=== PATIENT | female | born 1960 | race Caucasian/White ===

== ENCOUNTER → 2017-09-18 08:17 | Outpatient (CLI) | payer OTHER, SELFPAY ==
--- NOTE | 2017-09-18 08:36 | EKG12_ITS ---
Test Reason : PREOP Blood Pressure : / mmHG Vent. Rate : 060 BPM Atrial Rate : 060 BPM P-R Int : 200 ms QRS Dur : 086 ms QT Int : 420 ms P-R-T Axes : 022 -18 015 degrees QTc Int : 420 ms Normal sinus rhythm Septal infarct , age undetermined Inferior infarct , age undetermined Abnormal ECG Confirmed by NARESH MAHMOOD, MIKHAIL ([id number]), newspaper editor managing NIRALI LANTIGUA ([id number]) on 09/20/2017 3:03:41 PM Referred By: Jasen Huff Confirmed By:MIKHAIL INFANTE MD
[2017-09-18 09:17] LABS: Hematocrit 41.7 % (37-47); Hemoglobin 13.9 g/dl (12.0-15.0); Mean Corp Hgb Conc 33.3 g/gl (32-36); Mean Corpuscular Hgb 30.7 pg (27.0-32.0); Mean Corpuscular Volume 92.1 fL (81-99); Mean Platelet Vol. 12.1 fl (6.2-12.0); Platelet Count 235 K/mm3 (150-450); RBC Distribution Width CV 12.6 % (11.6-14.6); RBC Distribution Width SD 42.5 fl (35.1-43.9); Red Blood Count 4.53 M/mm3 (4.2-5.4); White Blood Count 5.7 K/mm3 (4.4-11.0)
[2017-09-18 09:26] LABS: Scan Indicated on CBC? Y/N NO
[2017-09-18 09:35] LABS: Anion Gap 10 (5-15); BUN 18 mg/dL (7-18); BUN/Creat Ratio 22.1 RATIO (10-20); Calcium,Total 8.7 mg/dL (8.5-10.1); Chloride 106 mmol/L (98-107); Creatinine, Serum 0.81 mg/dL (0.55-1.02); EST Glomerular Filtration Rate 77 mL/min (>60); Est Glom Filt Rate - Afr Amer 93 mL/min (>60); Glucose 85 mg/dL (74-106); Potassium 4.1 mmol/L (3.5-5.1); Sodium Level 142 mmol/L (136-145)
== END ==
PROVIDERS: Family Provider Family Medicine; PCP Family Medicine; Visit Provider Orthopaedic Surgery
DX: Z01.810 Encounter for preprocedural cardiovascular examination (principal); Z01.818 Encounter for other preprocedural examination
CPT/HCPCS: 36415; 80048; 85027; 93005

== ENCOUNTER → 2018-01-24 08:58 | Outpatient (CLI) | payer OTHER, SELFPAY | PROVIDERS: Family Provider Family Medicine; PCP Family Medicine; Visit Provider Orthopaedic Surgery | DX: M79.89 Other specified soft tissue disorders (principal) | CPT/HCPCS: 93971 ==

== ENCOUNTER → 2018-06-11 11:16 | Outpatient (CLI) | payer OTHER, SELFPAY ==
[2018-06-10 15:10] VITALS: BMI 34.9
--- NOTE | 2018-06-11 11:33 | STEWCON_ITS ---
Reason For Study: ABN EKG, PREOP Stress Results Protocol: Dobutamine Protocol Maximum Predicted HR: 161 bpm Target HR: 137 bpm % Maximum Predicted HR: 84 % DurationHeart Rate Stage (mm:ss) (bpm) BP Dose Comment BASELINE 76 135/77 0.2CC DEFINITY STAGE 1 3:22 101 137/6210.000.1 CC DEFINITY STAGE 2 3:10 130 111/8720.000.2 CC DEFINITY STAGE 3 1:36 136 / 30.00 RECOVERY 90 131/70 0.1 CC DEFINTIY Stress Duration: 8:08 mm:ss Maximum Stress HR: 136 bpm Baseline Echocardiogram Findings The estimated ejection fraction is 65 %. Stress Echo Wall motion Data Resting WM Intermediate WM Stress WM Resting Wall Motion Wall Motion Stress No regional wall motion No regional wall motion abnormalities noted. abnormalities noted. EKG Data The baseline ECG displays normal sinus rhythm. The patient was titrated from 10 mcg to a maximun of 30 mcg of dobutamine during the stress. The maximum heart rate attained was 139 beats per minute. This was 86% of maximum predicted heart rate. During dobutamine infusion, there were no ST or T wave changes noted to suggest ischemia. No clinical angina was noted. Interpretation Summary The estimated ejection fraction is 65 %. Normal, adequate, dobutamine echocardiogram. Negative for ischemia by EKG and echocardiographic criteria. No anginal symptoms noted. Rare PVCs noted. Appropriate blood pressure response to dobutamine. Test terminated due to the attainment of target heart rate. Final LVEF is 75%. Decreased sensitivity due to poor echo windows requiring Definity agent. No complications. The study was technically difficult. Contrast injection was performed. Ordering Physician: Benjamin Hope Referring Physician: Benjamin Hope Performed By: Janell Jason, WILLIAM, RVT
[2018-06-11 13:17] LABS: AST(SGOT) 22 U/L (15-37); Alanine Aminotransfer ALT/SGPT 34 U/L (13-56); Albumin, Serum 3.9 g/dL (3.2-5.0); Alkaline Phosphatase 97 U/L (45-117); Bilirubin, Direct 0.11 mg/dL (0.00-0.30); Cholesterol 262 mg/dL (200); Globulin 3.7 g/dL (2.2-4.2); High Density Lipoprotein 53 mg/dL; Protein, Total 7.6 g/dL (6.4-8.2); Triglycerides 167 mg/dL; Very Low Density Lipoprotein 33 mg/dL (5-40)
--- OUTSIDE RECORDS SUMMARY | 2018-08-13 09:02 | XMS RPT_ITS ---
:1960 Author Organization [place] Support Name Relationship Address Phone LIN ARTIS Unavailable [address] + [place] [address] WOOCISCH Unavailable [address] + [place] [address] LIN ARTIS Unavailable [address] + [place] [address] WOOCISCH Unavailable [address] + [place] [address] ROB ARTISALD Unavailable [address] + [place] [address] WOOCISCH Unavailable [address] + [place] [address] ROB ARTISALD Unavailable [address] + [place] [address] WOOCISCH Unavailable [address] + [place] [address] ROB ARTISALD Unavailable [address] + [place] [address] WOOCISCH Unavailable [address] + [place] [address] ROB ARTISALD Unavailable [address] + [place] [address] WOOCISCH Unavailable [address] + [place] [address] CHANDRA LIN Unavailable [address] [phone] [place] [address] WOOCISCH Unavailable [address] + [place] [address] CHANDRA LIN Unavailable [address] [phone] [place] [address] WOOCISCH Unavailable [address] + [place] [address] Care Team Providers Name Role Phone CONY CARBALLO () Attending Unavailable LA [place] Referring Unavailable LOULOU SNYDER (DOUBLE SPINDLE SHAPER OPERATOR) Attending Unavailable CONY CARBALLO) Attending Unavailable CONY CARBALLO) Referring Unavailable CONY CARBALLO () Referring Unavailable LOS MCKEON MD Attending Unavailable KAIT SALINAS, [facility] Primary Care Unavailable LOS MCKEON MD Attending Unavailable [facility] Primary [facility] Unavailable LOS MCKEON MD Attending Unavailable KAIT SALINAS, [facility] Primary Care Unavailable Benjamin Hope Attending Unavailable Jame Carballo Referring Unavailable Benjamin Hope Attending Unavailable Benjamin Hope Referring Unavailable Bursley, Jame Primary Care Unavailable Benjamin Hope Attending Unavailable Benjamin Hope Referring Unavailable Bursley, Jame Primary Care Unavailable Benjamin Hope Attending Unavailable Benjamin Hope Referring Unavailable Bursley, Jame Primary Care Unavailable Benjamin Hope Consulting Unavailable Jasen Huff Attending Unavailable Jasen Huff Referring Unavailable Bursley, Jame Primary Care Unavailable Juan Hay Attending Unavailable Eileen Shane Attending Unavailable Bursley, Jame Referring Unavailable Bursley, Jame Primary Care Unavailable Eileen Shane Attending Unavailable Eileen Shane Referring Unavailable Bursley, Jame Primary Care Unavailable PROBLEMS PROBLEMS DATE TYPE CONDITION / CODE ATTENDING STATUS SOURCE 06/16/2018 Unknown Z01.810 - Encounter Benjamin Hope for preprocedural [facility] examination / Repository Z01.810(ICD-10) 06/16/2018 Unknown R94.31 - Abnormal Benjamin Hope Active [facility] electrocardiogram Community [ECG] [EKG] / Hospital R94.31(ICD-10) Repository 06/10/2018 Unknown K21.0 - Benjamin Hope Active [facility] reflux disease with Hospital esophagitis / Repository K21.0(ICD-10) 06/05/2018 Active Other alf NA Active [facility] (current) drug therapy [facility] / Z79.899(ICD-10) [facility] Repository 06/05/2018 Active Abnormal NA Active [facility] electrocardiogram [facility] (ECG) (EKG) / [facility] R94.31(ICD-10) Repository 06/05/2018 Active Unilateral primary NA Active [facility] osteoarthritis, right Clinic Main knee / M17.11(ICD-10) [facility] Repository 06/05/2018 Active Encounter for other NA Active [facility] preprocedural [facility] examination / [facility] Z01.818(ICD-10) Repository 01/23/2018 Unknown M79.89 - Other [place], Active [facility] specified soft tissue Eileen [facility] disorders / Hospital M79.89(ICD-10) Repository 08/07/2017 Active Unknown / UNK(Unknown) LOULOU SNYDER Active [facility] (DOUBLE SPINDLE SHAPER OPERATOR) Clinic Main [facility] Repository 08/07/2017 Active Encounter for NA [facility] screening mammogram [facility] for malignant neoplasm [facility] of breast / Repository Z12.31(ICD-10) PROCEDURES PROCEDURES No Procedure Records FoundRESULTS RESULTS ECHO, COMPLETE W/ Observed: 06/16/2018 Status: F Source: [place] CONTRAST 3:26 PM [facility] REPOSITORY [facility] Cardiovascular Services [address] [place] [address] Echo Complete W/ Contrast 06/16/18 1352 MR#: [id number] Acct: [id number] Name: CARMENZA ARTIS Rep #: [id number] : 1960 57 From: Benjamin Hope MD Attending Dr: Benjamin Hope MD Status: REG CLI Ordering Dr: Benjamin Hope MD Date: 06/16/18 Location: [facility] Sex: F C Admitted: Reason For Study: Abn EKG, Preop Procedure This was a 2D Doppler, Color Flow transthoracic echocardiogram. Contrast injection was performed. Exam performed in department. Left Ventricle Normal size and thickness. The estimated ejection fraction is 65 %. Stage 1 diastolic dysfunction. No regional wall motion abnormalities noted. Right Ventricle Normal size and thickness. Normal systolic function. Atria Normal left atrium. Normal right atrium. Normal atrial septum. Mitral Valve The mitral valve is structurally normal. No prolapse or stenosis seen. Tricuspid Valve Normal tricuspid valve. Trivial tricuspid valve insufficiency. Right ventricular systolic pressure estimated to be 18 mmHg. Aortic Valve Normal aortic valve. Trisinus/trileaflet aortic valve. Pulmonic Valve Normal pulmonic valve. Trivial pulmonic valve insufficiency. Great Vessels Normal aortic root. Normal arch. Normal inferior vena cava. Inferior vena cava collapse with sniff. Pericardium/Pleural No pericardial effusion. Medication Definity0.4ml given slow IV push to enhance endocardial definition. MMode/2D Measurements AND Calculations LVIDd: 4.1 cm IVSd: 1.1 cm Ao root diam: 2.9 cm LVIDs: 2.4 cm LVPWd: 0.98 cm RVDd: 2.8 cm FS: 41.5 % LAV(MOD-bp): 33.2 ml LVAd ap4: 25.8 cm2 SV(MOD-sp4): 51.5 ml LAV(MOD-bp) Indexed: 17.4 ml/m2 EDV(MOD-sp4): 74.0 ml LAV(MOD-sp2): 28.5 ml EDV(sp4-el): 74.9 ml LAV(MOD-sp4): 32.2 ml LVAs ap4: 13.1 cm2 ESV(MOD-sp4): 22.6 ml ESV(sp4-el): 21.6 ml EF(MOD-sp4): 69.5 % EF(sp4-el): 71.2 % SV(sp4-el): 53.3 ml LA A4 area: 13.9 cm2 LA dimension(2D): 3.9 cm RA A4 area: 13.6 cm2 Doppler Measurements AND Calculations MV E max azam: 53.2 cm/sec Lat Peak E' Azam: 9.9 cm/sec Med Peak E' Azam: 6.8 cm/sec MV A max azam: 73.7 cm/sec E/E' lat: 5.4 E/E' med: 7.9 MV E/A: 0.72 Ao V2 max: 122.9 cm/sec LV V1 max: 89.5 cm/sec PA V2 max: 116.5 cm/sec Ao max P.0 mmHg LV V1 max P.2 mmHg Ao V2 mean: 86.2 cm/sec Ao mean P.3 mmHg Ao V2 VTI: 19.5 cm TR max azam: 184.6 cm/sec TR max P.6 mmHg Interpretation Summary The estimated ejection fraction is 65 %. Stage 1 diastolic dysfunction. Trivial tricuspid valve insufficiency. Right ventricular systolic pressure estimated to be 18 mmHg. The study was technically difficult. There is no comparison study available. Contrast injection was performed. Ordering Physician: Benjamin Hope Referring Physician: Cony Carballo Performed By: Janell Jason, RDCS, RVT 06/16/18 1525 Date Benjamin Hope MD CC: Jame Carballo MD; Benjamin Hope MD Date Dictated: 06/16/18 1352 Date Transcribed: 06/16/18 1525 Cardiovascular Or Nurse: Signed STRESS TEST ECHO W/ Observed: 06/11/2018 Status: F Source: [place] CONTRAST 1:42 PM [facility] REPOSITORY [facility] Cardiovascular Services [address] [place] [address] Stress Test Echo W/Contrast MR#: [id number] Acct: [id number] Name: CARMENZA ARTIS Rep #: [id number] : 1960 57 From: Benjamin Hope MD Primary Care: Jame Carballo MD Status: REG CLI Ordering Dr: Benjamin Hope MD Sex: F C Reason For Study: ABN EKG, PREOP Stress Results Protocol: Dobutamine Protocol Maximum Predicted HR: 161 bpm Target HR: 137 bpm % Maximum Predicted HR: 84 % DurationHeart Rate Stage (mm:ss) (bpm) BP Dose Comment BASELINE 76 135/77 0.2CC DEFINITY STAGE 1 3:22 101 137/6210.000.1 CC DEFINITY STAGE 2 3:10 130 111/8720.000.2 CC DEFINITY STAGE 3 1:36 136 / 30.00 RECOVERY 90 131/70 0.1 CC DEFINTIY Stress Duration: 8:08 mm:ss Maximum Stress HR: 136 bpm Baseline Echocardiogram Findings The estimated ejection fraction is 65 %. Stress Echo Wall motion Data Resting WM Intermediate WM Stress WM Resting Wall Motion Wall Motion Stress No regional wall motion No regional wall motion abnormalities noted. abnormalities noted. EKG Data The baseline ECG displays normal sinus rhythm. The patient was titrated from 10 mcg to a maximun of 30 mcg of dobutamine during the stress. The maximum heart rate attained was 139 beats per minute. This was 86% of maximum predicted heart rate. During dobutamine infusion, there were no ST or T wave changes noted to suggest ischemia. No clinical angina was noted. Interpretation Summary The estimated ejection fraction is 65 %. Normal, adequate, dobutamine echocardiogram. Negative for ischemia by EKG and echocardiographic criteria. No anginal symptoms noted. Rare PVCs noted. Appropriate blood pressure response to dobutamine. Test terminated due to the attainment of target heart rate. Final LVEF is 75%. Decreased sensitivity due to poor echo windows requiring Definity agent. No complications. The study was technically difficult. Contrast injection was performed. Ordering Physician: Benjamin Hope Referring Physician: Benjamin Hope Performed By: Janell Jason, WILLIAM, RVT 06/11/18 1341 Date Benjamin Hope MD CC: Jame Carballo MD; Benjamin Hope MD Date Dictated: 06/11/18 1210 Date Transcribed: 06/11/18 1342 Cardiovascular Or Nurse: Signed LIVER PROFILE Collected: 06/11/2018 Status: F Source: [place] 11:20 AM [facility] REPOSITORY TYPE CODE TESTS RESULT OUT OF RANGE REFERENCE UNITS LAB L501.1500 6.4-8.2 g/dL Normal T PROT 7.6 LAB L501.1800 3.2-5.0 g/dL Normal ALB 3.9 LAB L501.1950 2.2-4.2 g/dL Normal GLOB 3.7 LAB L501.4100 15-37 U/L Normal AST 22 LAB L501.4305 45-117 U/L Normal ALK P 97 LAB L501.4405 13-56 U/L Normal ALT 34 LAB L501.4600 0.20-1.00 mg/dL Normal T BILI 0.50 LAB L501.4700 0.00-0.30 mg/dL Normal D BILI 0.11 Performed By: #### L500.3400, L500.4100 #### [facility] [address] [place], [address] LIPID PROFILE Collected: 06/11/2018 Status: F Source: [place] 11:20 AM [facility] REPOSITORY TYPE CODE TESTS RESULT OUT OF RANGE REFERENCE UNITS LAB L501.4900 200 mg/dL High CHOL 262 Result Comment: <200 mg/dL Desirable 200-240 mg/dL Borderline >240 mg/dL High Risk LAB L501.5000 mg/dL Normal TRIG 167 Result Comment: The drugs N-Acetylcysteine and Metamizole may falsely depress this assay. Serum Triglycerides Reference Interval Normal <150 mg/dL Borderline high 150 - 199 mg/dL High 200 - 499 mg/dL Very High > or = 500 mg/dL LAB L501.6400 mg/dL Normal HDL 53 Result Comment: The drugs N-Acetylcysteine and Metamizole may falsely depress this assay. Reference Range HDL <40 mg/dL Low HDL Cholesterol HDL >or= 60 mg/dL High HDL Cholesterol LAB L501.6500 0-130 mg/dL High LDL 176 LAB L501.6600 5-40 mg/dL Normal VLDL 33 Performed By: #### L500.3400, L500.4100 #### [facility] [address] [place], [address] CARDIOLOGY VISIT Observed: 06/10/2018 Status: F Source: [place] REPORT 3:33 PM [facility] REPOSITORY [facility] [address] [place] [address] OFFICE VISIT Date of Service: 06/10/18 MR#: [id number] Acct: [id number] Name: CARMENZA ARTIS Rep #: [id number] : 1960 Provider: Benjamin Hope MD Age/Sex: 57/F Location: [facility] Status: Signed [facility] Chief Complaint: Pre operative risk stratification Details: CARMENZA ARTIS, is a 57 F, nondiabetic, nonhypertensive, with hypercholesterolemia on no medications, history of severe GERD for the past 2-3 years on PPI therapy, lifelong non-smoker, and no known coronary artery disease who presents to the office today for evaluation of preoperative stratification and abnormal EKG. The patient has recently been under a significant amount of psychosocial stress over the last several months, dealing with both her and her father with severe illnesses. Approximately 2-3 months ago while sitting on the couch the patient developed severe midsternal chest heaviness, which appeared to radiate between her shoulder blades and under her left armpit. She had no associated shortness of breath but did have some nausea but no vomiting. She reports that this is dissimilar from her previous GERD symptoms, and has not recurred since that time. The patient is being evaluated for [id number] right knee surgery coming up soon, and a preoperative EKG was performed on 06/03/18. This demonstrated normal sinus rhythm, possible old inferior wall myocardial infarction, and poor R wave progression across the precordium possibly suggesting old anterior wall myocardial infarction. This is consistent with the previous EKG from 01/30/2012. In our office her blood pressure is 90/50, pulse is 96 and regular. Her physical exam demonstrates clear lungs bilaterally, regular rate and rhythm, normal S1/S2, no murmurs are detected. She has no edema. Lipids are pending. EKG is as above. Intake Vital Signs06/10/18 Height 5 ft 3 in 06/10/18 Weight: 197 lb 06/10/18 Body Mass Index (BMI) 34.9 06/10/18 Blood Pressure 90/50 L Intake Visit Reasons: CLEAR. FOR KNEE SURGERY (LINDA), ABN EKG Radar Operator Required: No Is patient in pain?: No Allergies No Known Allergies Allergy (Verified 06/10/18 15:13) Medications ibuprofen 200 mg tablet 200 mg PO TID-QID PRN 01/23/18 [History Confirmed 06/10/18] lansoprazole 30 mg capsule,delayed release 30 mg PO BID 06/10/18 [History Confirmed 06/10/18] PFSH Medical History Abnormal EKG (Chronic) Pre-operative cardiovascular examination (Acute) Arthritis of right knee (Chronic) Social History Smoking Status: Never smoker ROS Const Const: Positive for other (Here for pre-op eval for abnormal ekg. 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 ); negative for fatigue, weakness, body ache, fever(s), headache(s), chills, frequent falls, night sweats, daytime sleepiness, difficulty sleeping, excessive sweating, weight gain, weight loss, increased appetite, poor appetite or anorexia Eyes Eyes: Negative for blind spots, loss of peripheral vision, transient loss of vision, blurry vision, change in vision, double vision, floaters, tunnel vision or other ENT ENT: Negative for dizziness, hearing loss, tinnitus, Nosebleed/epistaxis, balance problems, post nasal drip, lip swelling, tongue swelling, bleeding gums, hoarseness, neck pain, dry mouth, other or headache(s) Cardio Chest Pain: No Palpitations: No Edema: None Muscle aches with walking: None Resp Respiratory: Positive for other (Has been inactive due to knee so does get ZULETA); negative for SOB with activity, SOB at rest, SOB orthopnea\SOB lying down, Cough, Coughing up blood/hemoptysis, chest congestion, pain on inspiration, snoring, stridor, wheezing, crackles or paroxysmal nocturnal dyspnea GI GI: Negative nausea, vomiting, heartburn, constipation, belching, bloating, cramping, vomiting blood/hematemesis, bright, red blood in stools, black,tarry stools, loose stools, Difficulty Swallowing or other : Negative for hematuria, frequent nighttime urination/ nocturia, erectile dysfunction or abnormal vaginal bleeding Musc Musc: Negative for balance problems, muscle aches/ myalgia, muscle weakness or joint pain Skin Skin: Negative redness, non-healing lesions, rash, unusual bruising, skin ulcer, wounds, jaundice or other Neuro Neuro: Negative for blurry vision, double vision, dizziness, lightheadedness, near syncope, syncope, orthostatic symptoms, confusion, memory loss, restless legs, vertigo, seizures, lack of coordination, other, weakness, headache(s) or frequent falls Gerard Hematologic/Lymphatic: Negative for easy bleeding, easy bruising, enlarged lymph nodes or other Endo Endo: Negative for cold intolerance, heat intolerance, flushing, increased thirst/drinking, increased hunger, hair loss, hair growth, other, fatigue or excessive sweating Psych Psych: Negative for anxiety, depression, thoughts of harming anyone, thoughts of harming yourself, visual hallucinations, panic attacks or audible hallucinations Allergy Allergy/Immunology: Negative for lip swelling, Negative for tongue swelling, Negative for rash, Negative for throat swelling, Negative for hives Cardiology Exam Const Appearance: cooperative, healthy appearing and no acute distress Nutritional Appearance: well nourished Orientation: alert, oriented x3 and oriented to person Head Head: normal to inspection, atraumatic and normocephalic Nose: external nose normal Face and Sinus: face symmetric Mouth: oral mucosae normal Eyes General: appearance normal, both eyes and all related structures Eyelids: eyelids normal Conjunctivae: conjunctivae normal Pupils: PERRL and normal by confrontation EOM: EOM intact bilaterally Neck Neck: normal visual inspection and full ROM Carotids: normal carotid upstroke Chest Chest inspection: normal inspection of the chest Auscultation: Bilateral: Clear to Auscultation Cardio Palpation: normal PMI Rate: regular rate Rhythm: regular rhythm Heart sounds: S1 normal and S2 normal GI GI: normal to inspection, no hepatosplenomegaly and bowel sounds present Neuro General: alert, oriented x3, awake, CN's II-XI intact bilaterally and moves all extremities Skin Skin: no rashes or lesions noted Extremities Pulses: Normal: Right Femoral Pulse, Left Femoral Pulse, Right Dorsalis Pedis Pulse, Left Dorsalis Pedis Pulse, Right Posterior Tibial Pulse, Left Posterior Tibial Pulse, Right Radial Pulse, Left Radial Pulse Lower Extremity Edema: None: Bilateral Psych Psychological: normal affect Assessment AND Plan 1. Pre-operative cardiovascular examination Z01.810 Plan 1. Preoperative for stratification: The patient presents with an abnormal EKG which is been present since 2012 and a concerning event for substernal chest pressure occurring several months ago while she was under a significant amount of psychosocial stress. Patient requires a right knee replacement and is set several risk factors for coronary disease including her age, abnormal EKG, hypercholesterolemia, and chest pain symptoms. In order to better evaluate her cardiac risk stratification I recommended that she undergo a 2D echo with Doppler to establish her LV function, pulmonary pressures and valvular status. In addition I recommend that she undergo a non-walking dobutamine echocardiogram to determine whether she has any ischemic areas. If either 1 of these are grossly abnormal, she will require a diagnostic coronary angiogram prior to her knee surgery. If however they are negative, she will be deemed at low risk for noncardiac surgery. In addition I recommend that she undergo a fasting lipid profile and treat her LDL cholesterol of greater than 130. Finally, recommend that she be referred to Dr. Rea for an EGD and possible lower esophageal biopsy given her years of severe GERD. Patient still has her gallbladder, and may be a contributing factor in her symptoms. I recommended the patient avoid aggressive use of ibuprofen as this may be exacerbating her reflux symptoms. 2. Return office in 6 months. This note was generated using a voice recognition system and there may be incorrect words, spelling or punctuation that were not noted when reviewing the office note prior to saving. Orders Orders: Plan Detail Other Orders Orders: Referrals: Follow Up +6M (Jayy) Coding Level of Care Code Off vis,new,level 4 Diagnoses Pre-operative cardiovascular examination Z01.810 Coding Level of Care Code Off vis,new,level 4 Diagnoses Pre-operative cardiovascular examination Z01.810 Supplemental Info Supplemental Information Diagnostics Electrocardiogram 09/18/17 Venous Doppler Study 01/24/18 06/10/18 1533 <Electronically signed by Benjamin Hope MD> Date Benjamin Hope MD Cosigner Signature: Date (if applicable) CC: Jame Carballo MD LIPID PANEL, BASIC Collected: 06/05/2018 Status: F Source: [place] 9:10 AM [facility] REPOSITORY TYPE CODE TESTS RESULT OUT OF REFERENCE UNITS RANGE LAB CHOL <200 mg/dL Cholesterol High 237 Result Comment: <200 mg/dL, Desirable 200-239 mg/dL, Borderline high >239 mg/dL, High LAB TRIGLY <150 mg/dL Triglyceride High 188 Result Comment: <150 mg/dL, Normal 150-199 mg/dL, Borderline high 200-499 mg/dL, High >499 mg/dL, Very high LAB HDL >39 mg/dL HDL-Cholesterol 51 Result Comment: 40-59 mg/dL, Acceptable >59 mg/dL, High: Negative risk factor for coronary heart disease <40 mg/dL, Low: Positive risk factor for coronary heart disease LAB LDL <100 mg/dL LDL-Cholesterol High 148 Result Comment: <100 mg/dL, Optimal 100-129 mg/dL, Near optimal/above optimal 130-159 mg/dL, Borderline high 160-189 mg/dL, High >189 mg/dL, Very high Secondary prevention optimal LDL Cholesterol levels are recommended to be < 70 mg/dL LAB NONHDL <130 mg/dL Non HDL High Cholesterol 186 Result Comment: <130 mg/dL, Optimal 130-159 mg/dL, Near optimal/above optimal 160-189 mg/dL, Borderline high 190-219 mg/dL, High >219 mg/dL, Very high Secondary prevention optimal non HDL Cholesterol levels are recommended to be < 100 mg/dL LAB FT hrs Fasting Time 12 LAB VLDL <30 mg/dL High VLDL Cholesterol 38 LAB TCHDL <5.10 TC:HDL Ratio 4.65 LAB LDLHDL <2.54 High LDL:HDL Ratio 2.90 Result Comment: Reference: 1. National Cholesterol Education Program ATP III Guideline At-A-Glance Quick Desk Reference: National Heart, Lung, and Blood [place]. National Institutes of Health. 2001: NIH Publication No. 01-3305. 2. An International Atherosclerosis Society position paper: global recommendations for the management of dyslipidemia: executive summary, Atherosclerosis. 2014: 232(2):410-413. Performed By: #### LIPB #### [facility] [employer] [address] [address] MAGNESIUM Collected: 06/05/2018 Status: F Source: [place] 9:10 AM [facility] REPOSITORY TYPE CODE TESTS RESULT OUT OF REFERENCE UNITS RANGE LAB MG 1.7-2.3 mg/dL Magnesium 2.1 Performed By: #### MG1, TSH #### [facility] [address] [address] TSH Collected: 06/05/2018 Status: F Source: [place] 9:10 AM [facility] REPOSITORY TYPE CODE TESTS RESULT OUT OF RANGE REFERENCE UNITS LAB TSH 0.400-5.500 uU/mL TSH 1.370 Performed By: #### MG1, TSH #### [facility] [address] [place] [id number] XR CHEST 2V FRONTAL/LAT Observed: 06/05/2018 Status: F Source: [place] 9:01 AM [facility] REPOSITORY * * *Final Report* * * DATE OF EXAM: Jun 05 2018 9:01AM WOX [id number] - XR CHEST 2V FRONTAL/LAT / PROCEDURE REASON: multiple diagnoses * * * * Physician Interpretation * * * * EXAMINATION: CHEST RADIOGRAPH (2 VIEW FRONTAL and LATERAL) CLINICAL HISTORY: Primary osteoarthritis of right knee Preop examination MQ: XC2_5 Comparison: Comparison is made to prior study dated 18 August 2011 RESULT: Lines, tubes, and devices: None. Lungs and pleura: There is no focal consolidation or acute pleural process. There is no overt pulmonary edema. Cardiomediastinal silhouette: Normal cardiomediastinal silhouette. Other: The bony structures are intact IMPRESSION: Stable chest. No acute cardiopulmonary process. Cardiovascular Or Nurse: PSCB Transcribe Date/Time: Jun 05 2018 3:37P Dictated by : QI GONZALEZ MD This examination was interpreted and the report reviewed and electronically signed by: QI GONZALEZ MD on Jun 05 2018 3:40PM EST [id number] Observed: 06/05/2018 Status: COMPLETED Source: [place] 8:52 AM [facility] REPOSITORY HNO ID: [id number] Author: Monse Shannon (Rt) Pepe Tracy Service: (none) Author Type: Program Project Manager Type: Progress Notes Filed: 06/05/2018 9:01 AM Note Text: Radiology Service Progress Note PATIENT NAME: Carmenza Artis DATE OF SERVICE: June 05, 2018 TIME: 8:52 AM PATIENT IDENTITY VERIFICATION COMPLETED USING TWO (2) METHODS: Patient confirmed name verbally and Date of . PATIENT GENDER DATA: Female. status: : No status: NO. PATIENT RELEVANT IMPLANT DATA REVIEWED: Not Applicable RADIOLOGY DEPARTMENT: General X-ray: Exam(s) Completed: Chest X-Ray PERIPHERAL IV DATA: Not applicable SIGNED BY: RT Ute June 05, 2018 8:52 AM PROGRESS Observed: 06/05/2018 Status: COMPLETED Source: [place] 8:02 AM [facility] REPOSITORY O ID: [id number] Author: Cony Smith) Kait Service: (none) Author Type: Physician Type: Progress Notes Filed: 06/05/2018 8:31 AM Note Text: Chief Complaint Patient presents with: Pre-Op Exam HPI Carmenza Artis is a 57 year old female who presents here today for preoperative clearance. Patient is to undergo right unicompartmental Knee Replacement by Dr. Mckeon on 06/10 for primary osteoarthritis. Prior to today's office visit she had CMP and CBC with normal creatinine and hemoglobin. EKG obtained showing Sinus rhythm with probably inferior infarct with q wave in lead III. Patient admits to occasional chest pain and palpitations (see ROS). Has had difficulty coming out of anesthesia in the past. Discussed this already with anesthesiologist and are considering block for procedure. No other complications with anesthesia in the past. Past medical history, appointments, medications, allergies reviewed. Previous Medical History PAST MEDICAL HISTORY Diagnosis Date - Arthritis - GERD (gastroesophageal reflux disease) - History of uterine fibroid - Hyperlipidemia - Obesity - Rheumatoid arthritis (HCC) Previous Surgical History PAST SURGICAL HISTORY Procedure Laterality Date - COLONOSCOP W/ OR W/O [facility] SPEC 09/22/2010 Colonoscopy - LIGATE FALLOPIAN TUBE - TOTAL ABDOM HYSTERECTOMY 01/2012 and LSO For fibroid uterus Family History FAMILY HISTORY Problem Relation Age of Onset - other (a fib) Mother - other (a fib) Father - Breast Cancer Maternal Aunt - Cancer Maternal Grandmother cervical - Alzheimer's Disease Paternal Grandfather Patient Allergies ALLERGIES No Known Allergies Current Medications No current outpatient prescriptions on file prior to visit. No current facility-administered medications on file prior to visit. 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 Left sided chest pain with radiation into left arm. Denies sweating, nausea, SOB, lightheadedness, exacerbation with exertion, improvement with rest. Gets occasional palpitations with this as well. GI: No nausea, vomiting, or diarrhea SKIN: Negative for lesions, rash, and itching EXAM: BP 124/74 Pulse 87 Temp 36.2 ?C (97.1 ?F) (Temporal Artery) Resp 12 Ht 158 cm (5' 2.21) Wt 88 kg (194 lb) LMP 01/14/2012 SpO2 97% BMI 35.25 kg/m? General Appearance: Well appearing, alert, in no acute distress, well-hydrated, well nourished.. Skin: Skin color, texture, turgor normal, no suspicious rashes or lesions. Lungs: lungs clear to auscultation. No wheezing, rhonchi, rales. Heart: RRR without murmur, gallop, or rubs. No ectopy. Abdomen: Normal abdominal exam, Abdomen soft, non-tender. Bowel sounds normal. No masses, organomegaly. Extremities: No deformities, edema, skin discoloration, clubbing or cyanosis. Good capillary refill. . Health Maintenance List HEPATITIS C SCREENING due on 2002 INFLUENZA(1) due on 01/18/2018 MAMMOGRAM due on 08/07/2018 DIABETES SCREEN due on 05/15/2019 COLORECTAL CANCER SCREENING,SEE MODIFIER due on 09/22/2020 LIPID SCREEN due on 05/15/2021 DTAP,TDAP,TD(3 - Td) due on 06/21/2026 ASSESSMENT/PLAN: 1. Primary osteoarthritis of right knee - ICD9: 715.16, ICD10: M17.11 (primary diagnosis) Would recommend delay of surgery at this time due to abnormal EKG and intermittent chest pain. Will obtain stress test and refer to cardiology for clearance. Will notify Dr. Mckeon's office. - COMP METABOLIC PANEL - CBC - ECG COMPLETE W INTERPRETATION - XR CHEST 2V FRONTAL/LAT 2. Preop examination - ICD9: V72.84, ICD10: Z01.818 See above. - COMP METABOLIC PANEL - CBC - ECG COMPLETE W INTERPRETATION - XR CHEST 2V FRONTAL/LAT - CONSULT TO CARDIOLOGY - MS CARDIAC PERF STRESS/PHARM 3. Abnormal EKG - ICD9: 794.31, ICD10: R94.31 See above - CONSULT TO CARDIOLOGY - MS CARDIAC PERF STRESS/PHARM - TSH BLD - MAGNESIUM BLD 4. Chest pain, unspecified type - ICD9: 786.50, ICD10: R07.9 Chest pain of unclear etiology, patient with significant risk factor(s) of Hyperlipidemia and obesity. - Stress testing- see orders - Referral to Cardiology Cony Carballo MD CNOV Observed: 06/05/2018 Status: COMPLETED Source: [place] 8:00 AM [facility] REPOSITORY Office Visit (FAMPWS) CARMENZA ARTIS ([id number]) 1960 F Date Time Provider Department 06/05/18 8:00 AM CONY CARBALLO) FAMPWS During your visit today, we recorded the following information about you: Temperature Pulse Respiration Blood pressure 97.1 degrees 87/minute 12/minute 124/74 Weight Height 88 kg 1.58 m Cony Carballo MD 06/05/2018 8:31 AM Signed Chief Complaint Patient presents with: Pre-Op Exam HPI Carmenzadinorah Artis is a 57 year old female who presents here today for preoperative clearance. Patient is to undergo right unicompartmental Knee Replacement by Dr. Mckeon on 06/10 for primary osteoarthritis. Prior to today's office visit she had CMP and CBC with normal creatinine and hemoglobin. EKG obtained showing Sinus rhythm with probably inferior infarct with q wave in lead III. Patient admits to occasional chest pain and palpitations (see ROS). Has had difficulty coming out of anesthesia in the past. Discussed this already with anesthesiologist and are considering block for procedure. No other complications with anesthesia in the past. Past medical history, appointments, medications, allergies reviewed. Previous Medical History PAST MEDICAL HISTORY Diagnosis Date - Arthritis - GERD (gastroesophageal reflux disease) - History of uterine fibroid - Hyperlipidemia - Obesity - Rheumatoid arthritis (HCC) Previous Surgical History PAST SURGICAL HISTORY Procedure Laterality Date - COLONOSCOP W/ OR W/O [facility] SPEC 09/22/2010 Colonoscopy - LIGATE FALLOPIAN TUBE - TOTAL ABDOM HYSTERECTOMY 01/2012 and LSO For fibroid uterus Family History FAMILY HISTORY Problem Relation Age of Onset - other (a fib) Mother - other (a fib) Father - Breast Cancer Maternal Aunt - Cancer Maternal Grandmother cervical - Alzheimer's Disease Paternal Grandfather Patient Allergies ALLERGIES No Known Allergies Current Medications No current outpatient prescriptions on file prior to visit. No current facility-administered medications on file prior to visit. 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 Left sided chest pain with radiation into left arm. Denies sweating, nausea, SOB, lightheadedness, exacerbation with exertion, improvement with rest. Gets occasional palpitations with this as well. GI: No nausea, vomiting, or diarrhea SKIN: Negative for lesions, rash, and itching EXAM: BP 124/74 Pulse 87 Temp 36.2 ?C (97.1 ?F) (Temporal Artery) Resp 12 Ht 158 cm (5' 2.21) Wt 88 kg (194 lb) LMP 01/14/2012 SpO2 97% BMI 35.25 kg/m? General Appearance: Well appearing, alert, in no acute distress, well-hydrated, well nourished.. Skin: Skin color, texture, turgor normal, no suspicious rashes or lesions. Lungs: lungs clear to auscultation. No wheezing, rhonchi, rales. Heart: RRR without murmur, gallop, or rubs. No ectopy. Abdomen: Normal abdominal exam, Abdomen soft, non-tender. Bowel sounds normal. No masses, organomegaly. Extremities: No deformities, edema, skin discoloration, clubbing or cyanosis. Good capillary refill. . Health Maintenance List HEPATITIS C SCREENING due on 2002 INFLUENZA(1) due on 01/18/2018 MAMMOGRAM due on 08/07/2018 DIABETES SCREEN due on 05/15/2019 COLORECTAL CANCER SCREENING,SEE MODIFIER due on 09/22/2020 LIPID SCREEN due on 05/15/2021 DTAP,TDAP,TD(3 - Td) due on 06/21/2026 ASSESSMENT/PLAN: 1. Primary osteoarthritis of right knee - ICD9: 715.16, ICD10: M17.11 (primary diagnosis) Would recommend delay of surgery at this time due to abnormal EKG and intermittent chest pain. Will obtain stress test and refer to cardiology for clearance. Will notify Dr. Mckeon's office. - COMP METABOLIC PANEL - CBC - ECG COMPLETE W INTERPRETATION - XR CHEST 2V FRONTAL/LAT 2. Preop examination - ICD9: V72.84, ICD10: Z01.818 See above. - COMP METABOLIC PANEL - CBC - ECG COMPLETE W INTERPRETATION - XR CHEST 2V FRONTAL/LAT - CONSULT TO CARDIOLOGY - NM CARDIAC PERF STRESS/PHARM 3. Abnormal EKG - ICD9: 794.31, ICD10: R94.31 See above - CONSULT TO CARDIOLOGY - NM CARDIAC PERF STRESS/PHARM - TSH BLD - MAGNESIUM BLD 4. Chest pain, unspecified type - ICD9: 786.50, ICD10: R07.9 Chest pain of unclear etiology, patient with significant risk factor(s) of Hyperlipidemia and obesity. - Stress testing- see orders - Referral to Cardiology Cony Carballo MD Referring Provider: SELF [200] Allergies As of Date: 06/05/2018 (No Known Allergies) Date Reviewed: 06/05/2018 Reviewed by: Riley Costa Ma - Fully Assessed Reason for Visit: Pre-Op Exam [87] Primary Visit Diagnosis:Primary osteoarthritis of right knee [M17.11] Other Visit Diagnoses:Preop examination [Z01.818] Abnormal EKG [R94.31] Chest pain, unspecified type [R07.9] Order(s):XR CHEST 2V FRONTAL/LAT [8058960] Order #: [id number] FUTURE CONSULT TO CARDIOLOGY [9004] Order #: [id number]: 1 NM CARDIAC PERF STRESS/PHARM [[id number]] Order #: [id number] FUTURE TSH BLD [SQTSH] Order #: [id number] FUTURE MAGNESIUM BLD [SQMG1] Order #: [id number] FUTURE Problem List As Of Date 06/05/2018 Noted Resolved Other and unspecified hyperlipidemia [E78.5] INVALID FOR*06/05/2018 OVERWEIGHT [E66.9] INVALID FOR*02/25/2013 Internal hemorrhoids without mention of complic*INVALID FOR* Special screening for malignant neoplasms, colo*INVALID FOR* Benign neoplasm of colon [D12.6] INVALID FOR* Premenopausal menorrhagia [N92.4] INVALID FOR*02/25/2013 Fibroids [D21.9] INVALID FOR*02/25/2013 Pelvic pressure in female [R10.2] INVALID FOR*02/25/2013 Rheumatoid arthritis [M06.9] INVALID FOR* GERD (gastroesophageal reflux disease) [K21.9] Hyperlipidemia [E78.5] Encounter Status:Closed by CONY CARBALLO MD on 06/05/18 CT KNEE W/O CONTRAST Observed: 06/03/2018 Status: F Source: [facility] [facility] 10:00 AM [facility] REPOSITORY ORIGINAL \H\CT of the RIGHT knee without contrast Technique:\N\ Prosthesis planning protocol including right knee, right hip and right ankle. This exam was performed according to our departmental dose- optimization program which includes automated exposure control, adjustment of the mA and/or kVp according to patient size and/or use of iterati ve reconstruction technique where applicable. COMPARISON: None Indication: Pain, osteoarthritis, presurgical planning for knee prosthesis, \H\Results:\N\ KNEE: Medial compartment: There is severe medial compartment narrowing with basv-gi-wyct, marginal spurring, subchondral sclerosis and cystic change. Lateral compartment: There is subchondral sclerosis and marginal spurring without significant compartment narrowing. Patellofemoral compartment: There is mild lateral tilting and subluxation of the patella. Marginal spurring of the patella and trochlear margins is present with subchondral sclerosis and there is narrowing of the lateral patellofemoral compartment. Other: There is small to moderate joint effusion. There is a very small medial popliteal cyst. Hip: Limited axial images through the hip joint show mild degenerative change. Ankle: Limited axial images of the ankle are also obtained. \H\\N\\H\IMPRESSION:\N\ 1. Tricompartment degenerative arthritis of the knee most pronounced in the medial compartment with severe medial compartment narrowing. 2. Mild Right hip osteoarthritis. Interpreted By: Justice Webb MD Preliminary Report By: Justice Webb MD Electronically Signed By: Justice Webb MD Dictated Date: 06/03/2018 3:39:05 PM Prelim Date: 06/03/2018 3:39:05 PM Sign Date: 06/03/2018 3:43:52 PM BMP Collected: 06/03/2018 Status: F Source: [place] 8:12 AM [facility] REPOSITORY TYPE CODE TESTS RESULT OUT OF REFERENCE UNITS RANGE LAB GLU(LOINC) 70-105 mg/dL Glucose Level 99 LAB NA(LOINC) 136-145 mmol/L Sodium Level 141 LAB K(LOINC) 3.5-5.1 mmol/L Potassium Level 4.1 LAB CL(LOINC) 98-107 mmol/L Chloride 104 LAB CO2(LOINC) 22-29 mmol/L CO2 26 LAB EBAL(LOINC mEq/L ) Electrolyte Balance 11.0 LAB BUN(LOINC) 7-18 mg/dL BUN High 21 LAB CRE(LOINC) 0.55-1.02 mg/dL Creatinine Lvl (s) 0.99 LAB BC(LOINC) 7-27 ratio BUN/Creatinine 21 Ratio LAB CA(LOINC) 8.4-10.2 mg/dL Calcium Lvl 9.2 Performed By: #### BMP, GFR #### [address] [address] #### CBC, ADIFF, ANEU #### [address] [address] .GFR Collected: 06/03/2018 Status: F Source: [place] 8:12 AM [facility] REPOSITORY TYPE CODE TESTS RESULT OUT OF REFERENCE UNITS RANGE LAB GFRAA(LOINC ml/min/1.73 ) sqm GFR 70 Tristanian Result Comment: GFR Population mean for , Non- Americans Ages 20-29 = 116 mL/min/1.73 sq.m. Ages 30-39 = 107 mL/min/1.73 sq.m. Ages 40-49 = 99 mL/min/1.73 sq.m. Ages 50-59 = 93 mL/min/1.73 sq.m. Ages 60-69 = 85 mL/min/1.73 sq.m. Ages 70+ = 75 mL/min/1.73 sq.m. Chronic Kidney Disease: Less than 60 mL/min/1.73 square meters End Stage Renal Disease: Less than 15 mL/min/1.73 square meters LAB GFRNO(LOINC) ml/min/1.73sqm GFR Non- 57 Result Comment: GFR Population mean for , Non- Americans Ages 20-29 = 116 mL/min/1.73 sq.m. Ages 30-39 = 107 mL/min/1.73 sq.m. Ages 40-49 = 99 mL/min/1.73 sq.m. Ages 50-59 = 93 mL/min/1.73 sq.m. Ages 60-69 = 85 mL/min/1.73 sq.m. Ages 70+ = 75 mL/min/1.73 sq.m. Chronic Kidney Disease: Less than 60 mL/min/1.73 square meters End Stage Renal Disease: Less than 15 mL/min/1.73 square meters Performed By: #### BMP, GFR #### [address] [address] #### CBC, ADIFF, ANEU #### [address] [address] CBC Collected: 06/03/2018 Status: F Source: [facility] 8:12 AM [facility] REPOSITORY TYPE CODE TESTS RESULT OUT OF REFERENCE UNITS RANGE LAB WBC(LOINC) 4.60-10.80 10 3/mcL WBC 5.10 LAB RBCCT(LOINC 4.20-5.40 10 6/mcL ) RBC 4.63 LAB HGB(LOINC) 12.0-16.0 G/dL Hgb 14.6 LAB HCT(LOINC) 37.0-47.0 % Hct 42.1 LAB MCV(LOINC) 80.0-94.0 fL MCV 90.9 LAB MCH(LOINC) 27.0-31.2 pg High MCH 31.5 LAB MCHC(LOINC) 33.0-37.0 G/dL MCHC 34.7 LAB RDW(LOINC) 11.5-14.5 % RDW 12.4 LAB PLT(LOINC) 130-400 10 3/mcL Platelet 217 LAB MPV(LOINC) 7.4-10.4 fL High MPV 10.5 Performed By: #### HANNAH, GFR #### [place] [address] #### CBC, ADIFF, ANEU #### [address] [address] .AUTO DIFF Collected: 06/03/2018 Status: F Source: [facility] 8:12 AM [facility] REPOSITORY TYPE CODE TESTS RESULT OUT OF REFERENCE UNITS RANGE LAB ALICE(LOINC) 37.0-80.0 % Neutrophil % 66.5 LAB LYM(LOINC) 10.0-50.0 % Lymphocyte % 20.5 LAB MON(LOINC) 1.7-13.0 % Monocyte % 9.5 LAB EO(LOINC) 0.0-7.0 % Eosinophil % 2.9 LAB BAS(LOINC) 0.0-2.5 % Basophil % 0.6 LAB ABLYM(LOIN 0.77-3.85 10 3/mcL C) Lymphocyte, 1.00 Absolute LAB JOANIE(LOINC 0.15-1.00 10 3/mcL ) Monocyte, 0.50 Absolute LAB AEOS(LOINC 0.00-0.40 10 3/mcL ) Eosinophil, 0.10 Absolute LAB ABAS(LOINC 0.00-0.19 10 3/mcL ) Basophil, 0.00 Absolute Performed By: #### BMP, GFR #### [place] [address] #### CBC, ADIFF, ANEU #### [address] [address] .NEUABS Collected: 06/03/2018 Status: F Source: [facility] 8:12 AM [facility] REPOSITORY TYPE CODE TESTS RESULT OUT OF REFERENCE UNITS RANGE LAB ANEU(LOINC) 2.85-6.16 10 3/mcL Neutrophil, 3.40 Absolute Performed By: #### BMP, GFR #### [place] [address] #### CBC, ADIFF, ANEU #### [place] [address] [address] [facility] Observed: 05/19/2018 Status: COMPLETED Source: [place] 12:00 AM [facility] REPOSITORY Patient Outreach ([facility]) CARMENZA ARTIS ([id number]) 1960 F Date Time Provider Department 05/19/18 CONY CARBALLO) [facility] During your visit today, we recorded the following information about you: Allergies As of Date: 05/19/2018 (No Known Allergies) Date Reviewed: 08/07/2017 Reviewed by: Loulou Snyder - Fully Assessed Visit Diagnosis:Medication management [Z79.899] Order(s):LIPID PANEL BASIC [SQLIPB] Order #: [id number] FUTURE Problem List As Of Date 05/19/2018 Noted Resolved HYPERLIPIDEMIA NEC/NOS [E78.5] INVALID FOR* OVERWEIGHT [E66.9] INVALID FOR*02/25/2013 Internal hemorrhoids without mention of complic*INVALID FOR* Special screening for malignant neoplasms, colo*INVALID FOR* Benign neoplasm of colon [D12.6] INVALID FOR* Premenopausal menorrhagia [N92.4] INVALID FOR*02/25/2013 Fibroids [D21.9] INVALID FOR*02/25/2013 Pelvic pressure in female [R10.2] INVALID FOR*02/25/2013 Rheumatoid arthritis [M06.9] INVALID FOR* GERD (gastroesophageal reflux disease) [K21.9] Hyperlipidemia [E78.5] Encounter Status:Closed by EIRKA GUADARRAMA on 06/03/18 ORTHOPEDIC VISIT Observed: 02/20/2018 Status: F Source: [place]HAWN JONES 9:43 AM [facility] REPOSITORY [facility] Orthopaedics AND Sports Medicine [facility] [address] [address] OFFICE VISIT Date of Service: 01/23/18 MR#: [id number] Acct: [id number] Name: CARMENZA ARTIS Rep #: [id number] : 1960 Provider: Eileen Shane DO Age/Sex: 57/F Location: [facility].SMO Status: Signed Intake Intake Visit Reasons: RIGHT KNEE PAIN Is patient in pain?: Yes Allergies No Known Allergies Allergy (Unverified 01/23/18 15:09) Medications ibuprofen 200 mg tablet 200 mg PO TID-QID PRN 01/23/18 [History Confirmed 01/23/18] PFSH Social History Smoking Status: Never smoker HPI RIGHT KNEE PAIN: Details: CARMENZA ARTIS is a 57 year old F here today for right knee pain. She notes that she has had knee pain since 2016. She notes that she had surgery in September 2017 for a knee scope and meniscectomy. Patient states that her surgery was not helpful and she continues to have knee pain. Patient has pain over her medial knee. She states that she typically has knee swelling but it is decreasing. Patient denies any popping or clicking. She has icnreased pain with sitting to standing or any activities. Patient has decreased knee range of motion due to limited activities due to her pain. She has an car unloader brace which is somewhat helpful. Patient had steroid injections prior to her surgery which was not helpful. Patients insurance just approved eufflexa which she has not gotten yet until she got another opinion. It was recommended to her to get partial knee replacements. She completed physcial therapy following her surgery for about 6 weeks which was helpful. She had xrays and MRI which she brought with her. ROS Const Reports system reviewed and no additional complaints, except as docu Eyes Reports system reviewed and no additional complaints, except as docu ENT Reports system reviewed and no additional complaints, except as docu Card Reports system reviewed and no additional complaints, except as docu Resp Reports system reviewed and no additional complaints, except as docu GI Reports system reviewed and no additional complaints, except as docu Reports system reviewed and no additional complaints, except as docu Musc Reports joint pain, Reports joint swelling, Reports limited joint movement Skin/Breast Reports system reviewed and no additional complaints, except as docu Neuro Yes system reviewed and no additional complaints, except as docu Psych Reports system reviewed and no additional complaints, except as docu Endo Reports system reviewed and no additional complaints, except as docu Ortho Exam Right Knee Skin/Wound: Yes CDI Contralateral Normal: Yes Swelling: Yes Homans Sign: No 1+: Effusion Knee ROM: Yes ROM-Extension -20 to 0, Yes ROM-Flexion 0-140 (120) Examination: Yes Med jt line tenderness, Yes Pain with flexion Quad Atrophy: Yes Assessment AND Plan 1. Primary osteoarthritis of right knee M17.11 Plan Personally reviewed the patient's medical history, medications, surgeries and recent exams if available. X-rays were reviewed. There is no obvious fracture, dislocation, or lucency noted. Educated on the anatomy of the knee and changes and OA that can progress. Answered her questions about gel injections and that lack of benefit she had from her scope. SHe is 3 months post op and reviewed that the healing time can but up to a year. 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 Instructed to monitor her diet and exercise, encouraged aquatic activities, and be active as tolerated. She could also try topical anti inflammatory, or oral naproxen/tylenol PM for night time. Due to her leg swelling and calf pain we will order a Doppler Follow up as needed or sooner if pain, swelling, numbness or associated symptoms, or concerns develop. All questions answered. Patient in agreement of plan. 2. Right leg swelling M79.89 Orders Orders: Coding Level of Care Code Off vis,new,level 3 Diagnoses Primary osteoarthritis of right knee M17.11 Osteoarthritis type: primary Right leg swelling M79.89 02/20/18 0943 <Electronically signed by Eileen Shane DO> Date Eileen Shane DO Cosigner Signature: Date (if applicable) CC: VENOUS DUPLEX LOWER Observed: 01/24/2018 Status: F Source: [place]HAWN EXTREMITY 8:14 PM [facility] REPOSITORY [facility] Cardiovascular Services [address] [place] [address] Venous Duplex US, Unilateral 01/24/18900 MR#: [id number] Acct: [id number] Name: CARMENZA ARTIS Rep #: [id number] : 1960 57 From: Bobby Hernandez MD Attending Dr: Eileen Shane DO Status: REG CLI Ordering Dr: Eileen Shane DO Date: 01/24/18 Location: [facility] Sex: F C Admitted: Reason For Study: LEG SWELLING RIGHT LEFT GSV is normal. CFV is compressible, spontaneous, phasic, CFV is compressible, spontaneous, phasic, competent, and demonstrates normal competent and demonstrates normal augmentation. augmentation. FV is compressible, spontaneous, phasic, competent and demonstrates normal augmentation. POP V is compressible, spontaneous, phasic, competent and demonstrates normal augmentation. T/P Trunk is compressible. PTV is compressible. RT PerV is compressible. Procedure Exam performed in department. A preliminary report was called and/or faxed to Dr. Shane. Interpretation Summary Deep veins of the right lower extremity are patent and compressible segmentally. There is no evidence of right lower extremity deep vein thrombosis. Valvular competence appears intact within the proximal deep venous system on the right . The right greater saphenous vein appears patent and compressible segmentally. Ordering Physician: Eileen Shane Referring Physician: Cony Carballo Performed By: Janette Cabral RVT 01/24/182012 Date Bobby Hernandez MD CC: Eileen Shane DO; Jame Carballo MD Date Dictated: 01/24/18900 Date Transcribed: 01/24/182012 Cardiovascular Or Nurse: Signed 12 LEAD ELECTROCARDIOGRAM Observed: 09/20/2017 Status: F Source: DASHAWN 3:04 PM [facility] REPOSITORY [facility] Cardiovascular Services [address] [place] [address] 12 Lead EKG 09/18/17 0841 MR#: [id number] Acct: [id number] Name: CARMENZA ARTIS Rep #: [id number] : 1960 57 From: Juan Hay MD Attending Dr: Jasen Huff DO Status: REG CLI Ordering Dr: Jasen Huff DO Date: 09/18/17 Location: LAB Sex: F C Admitted: Test Reason : PREOP Blood Pressure : / mmHG Vent. Rate : 060 BPM Atrial Rate : 060 BPM P-R Int : 200 ms QRS Dur : 086 ms QT Int : 420 ms P-R-T Axes : 022 -18 015 degrees QTc Int : 420 ms Normal sinus rhythm Septal infarct , age undetermined Inferior infarct , age undetermined Abnormal ECG Confirmed by JUAN HAY MD ([id number]), makeup editor NIRALI LANTIGUA ([id number]) on 09/20/2017 3:03:41 PM Referred By: Jasen Huff Confirmed By:JUAN HAY MD 09/20/17 1503 Date Juan Hay MD CC: Jame Carballo MD; Jasen Huff DO Signed CBC-COMPLETE BLOOD CNT Collected: 09/18/2017 Status: F Source: DASHAWN NO DIFF 8:30 AM [facility] REPOSITORY TYPE CODE TESTS RESULT OUT OF RANGE REFERENCE UNITS LAB L100.1000 4.4-11.0 K/mm3 Normal WBC 5.7 LAB L100.1200 4.2-5.4 M/mm3 Normal RBC 4.53 LAB L100.1300 12.0-15.0 g/dl Normal HGB 13.9 LAB L100.1400 37-47 % Normal HCT 41.7 LAB L100.1500 81-99 fL Normal MCV 92.1 LAB L100.1600 27.0-32.0 pg Normal MCH 30.7 LAB L100.1700 32-36 g/gl Normal MCHC 33.3 LAB L100.1810 11.6-14.6 % Normal RDW CV 12.6 LAB L100.1820 35.1-43.9 fl Normal RDW SD 42.5 LAB L100.1900 150-450 K/mm3 Normal PLT 235 LAB L100.2000 6.2-12.0 fl High MPV 12.1 Performed By: #### L100.0500 #### [facility] Laboratory [address] [place], [place], [address] BASIC METABOLIC Collected: 09/18/2017 Status: F Source: [place] PROFILE (BMP) 8:30 AM [facility] REPOSITORY TYPE CODE TESTS RESULT OUT OF RANGE REFERENCE UNITS LAB L501.0100 74-106 mg/dL Normal GLU 85 Result Comment: Please note revised GLUCOSE reference range effective 2017. LAB L501.1000 7-18 mg/dL Normal BUN 18 LAB L501.1100 0.55-1.02 mg/dL Normal CREAT,SERUM 0.81 Result Comment: The validity of the calculated GFR AND GFRAA in patients over 70 years has not been determined. Clinical correlation is essential. LAB L501.1110 >60 mL/min Normal EST GFR 77 Result Comment: Non- GFR Calc LAB L501.1115 >60 mL/min Normal EST GFR - AA 93 Result Comment: GFR Calc LAB L501.1300 10-20 RATIO High BUN/CRE 22.1 LAB L501.2200 8.5-10.1 mg/dL CA Normal 8.7 LAB L501.5300 136-145 mmol/L NA Normal 142 LAB L501.5600 3.5-5.1 mmol/L K Normal 4.1 LAB L501.5900 98-107 mmol/L CL Normal 106 LAB L501.6100 21.0-32.0 mmol/L Normal CO2 26.0 LAB L501.6200 5-15 Normal GAP 10 Performed By: #### L500.2500 #### [facility] [address] [place], [address] CNOV Observed: 08/07/2017 Status: COMPLETED Source: [place] 3:30 PM [facility] REPOSITORY Office Visit (WOOB) CARMENZA ARTIS ([id number]) 1960 F Date Time Provider Department 08/07/17 3:30 PM LOULOU SNYDER (DAVID) WODAKSHA During your visit today, we recorded the following information about you: Blood pressure Weight Height 106/70 86.5 kg 1.607 m Loulou Snyder APRN.CNP, APRN.CNP 08/07/2017 3:59 PM Signed Carmenza Mirtha Artis is a 57 year old who presents for her annual gynecologic exam without complaints. Postmenopausal: hysterectomy with LSO in 2011 HRT use: No. Last Pap: 2009 normal HPV: 2009 negative History of abnormal pap: No Last mammogram: today normal History of abnormal mammogram: No Sexually active: No Hot flashes: No Night sweats: No Vaginal dryness: Yes, mild Exercise: tore meniscus right, is unable to be physically active Diet: balanced Seatbelt use: Yes Obstetric History T0 L2 SAB0 TAB0 Ectopic0 Multiple0 Live Births0 PAST MEDICAL HISTORY Diagnosis Date - Arthritis - GERD (gastroesophageal reflux disease) - History of uterine fibroid - Hyperlipidemia - Obesity - Rheumatoid arthritis (HCC) PAST SURGICAL HISTORY Procedure Laterality Date - COLONOSCOP W/ OR W/O [facility] SPEC 09/22/2010 Colonoscopy - LIGATE FALLOPIAN TUBE - TOTAL ABDOM HYSTERECTOMY 01/2012 and LSO For fibroid uterus FAMILY HISTORY Problem Relation Age of Onset - a fib [OTHER] Mother - a fib [OTHER] Father - Breast Cancer Maternal Aunt - Cancer Maternal Grandmother cervical - Alzheimer's Disease Paternal Grandfather SOCIAL HISTORY Social History Substance Use Topics - Smoking status: Never Smoker - Smokeless tobacco: Never Used Comment: second hand smoke exposure - Alcohol use Yes REVIEW OF SYSTEMS Abdomen: No abdominal pain, nausea, vomiting, diarrhea, or constipation. No bloating, early satiety, indigestion, or increased flatulence. Bladder: No dysuria, gross hematuria, urinary frequency, urinary urgency, or incontinence Breast: No breast lumps, nipple d/c, overlying skin changes, redness or skin retraction Allergies and current medication updated:Yes EXAM: BP 106/70 Ht 5' 3.25ANDquot; (1.61m) Wt 190 lb 12.8 oz (86.5kg) LMP 01/14/2012 BMI 33.51 kg/(m2). GENERAL: pleasant, female in no apparent distress HEENT: Normocephalic, atraumatic, mucus membranes moist and no lesions NECK: Supple, full range of motion, no adenopathy and thyroid normal DERMATOLOGY: Normal, without lesions, non-icteric and non-hirsute BREAST: soft, non-tender, symmetric, no dominant mass, normal nipple-areolar complex, no lymphadenopathy and no nipple discharge CHEST: Normal inspiratory effort ABDOMEN: soft, non-tender and no masses PELVIC: external genitalia normal, normal Bartholin's glands, urethra, [place]'s glands, no vulvar lesions, physiologic discharge present, normal appearing perineal body and perianal region, cervix surgically absent BIMANUAL: no adnexal masses, non-tender and uterus surgically absent RECTOVAGINAL: deferred. NEURO: alert and oriented x3,exam grossly non-focal EXTREMITIES: normal ASSESSMENT/PLAN: 1) Health maintenance: Pap/HPV screening no longer needed Mammogram up to date Nutrition, exercise and routine health maintenance exams reviewed. Calcium/Vitamin D supplementation information provided. Colon cancer screening: up to date with screening 2. Vaginal dryness, mild - Replens moisturizer - Coconut oil 3) Follow up one year or sooner as needed Loulou Snyder APRN.DAVID Snyder APRN.JUVENCIO HERNANDEZ.DAVID 08/07/2017 3:54 PM Signed Replens moisturizer Coconut oil Calcium and Vitamin D Supplementation (from the National Institutes of Health Office of Dietary Supplements 2010) Calcium 600 mg twice daily and Vit D 1000 IU daily Calcium is required by the body for blood vessel, muscle, hormone and nerve functioning. Most of the body's calcium is stored in the bones and teeth where it supports structure and function. Bone is continuously broken down and reformed. When bone breakdown exceeds formation, especially in postmenopausal women, bone loss can increase the risk of osteoporosis and fractures. In addition to low calcium intake, women who smoke, have a family history of osteoporosis, are thin, or , or who take certain medications such as cancer chemotherapy, seizure mediations and steroids are at increased risk of osteoporosis. The calcium requirements in women change with age. The National Institutes of Health (NIH) recommends: 1000mg elemental calcium for premenopausal women age 19-50 1200mg elemental calcium for postmenopausal women and all women over 50 Milk, yogurt, and cheese are rich natural sources of calcium and are the major food contributors in the [place]. For example, 8oz of milk (whole, lowfat or skim) contains about 300mg calcium, 8oz of yogurt contains 415mg. Nondairy sources include salmon and sardines and vegetables, such as [place]ic cabbage, kale, and broccoli. Foods fortified with calcium include many fruit juices, tofu and cereals. For more food calcium content information, visit http://ods.od.nih.gov/factsheets/calcium. Calcium supplements come in several different forms. Remember that the recommendations are for millgrams (mg) of elemental calcium which may be less than the total weight of the supplement. The amount of elemental calcium is required to be printed on the label. Calcium carbonate is the least expensive form. It must be taken on a full stomach to be properly absorbed. Some patients may experience gas or constipation. Calcium phosphate and calcium citrate may be taken either with or without food and tend to have less side effects but are generally more expensive. Because of its ability to neutralize stomach acid, calcium carbonate is found in some adzb-iku-qcyltgp antacid products, such as Tums? and Rolaids?. Depending on its strength, each chewable pill or softchew provides 200 to 400 mg of elemental calcium. The percentage of calcium absorbed depends on the total amount of elemental calcium consumed at one time. Absorption is highest in doses ANDlt;500mg. So a woman who takes 1,000mg/day of calcium from supplements should split the dose and take 500mg at two separate times during the day. Too much calcium can cause kidney stones, constipation, difficulty absorbing other nutrients and calcium buildup in blood vessels. Women under 50 should not exceed 2500mg/day (2000mg/day for women over 50) of calcium from food and supplements. Excessive alcohol and caffeine intake can inhibit absorption of calcium. Calcium can reduce the absorption of some medications if taken at the same time of day (bisphosphonates, thyroid medication, Phenytoin and other seizure medications, some antibiotics and iron supplements). Vitamin D promotes calcium absorption in the gut and maintains adequate blood levels of calcium and phosphate for normal bone growth and bone remodeling. Vitamin D also helps regulate cell growth as well as nerve, muscle and immune system function. Vitamin D is produced in the skin as a result of ultraviolet sunlight rays and must be altered in the liver and kidney to become its active form. Recommended intake according to the National Institutes of Health is 600 International Units (IU) for girls and women ages 1-70 and 800 IU for women over 70. Very few foods in nature contain vitamin D. The flesh of fatty fish (such as salmon, tuna, and mackerel) and fish liver oils are among the best sources. Small amounts of vitamin D are found in beef liver, cheese, mushrooms and egg yolks. Most people meet at least some of their vitamin D needs through exposure to sunlight. Season, time of day, length of day, cloud cover, smog, skin melanin content, and sunscreen are among the factors that affect UV radiation exposure and vitamin D synthesis. Despite the importance of the sun for vitamin D synthesis, it is prudent to limit exposure of skin to sunlight and avoid tanning beds. UV radiation is a carcinogen responsible for most of the estimated 1.5 million skin cancers that occur annually in the [place]. Lifetime cumulative UV damage to skin is also responsible for some age-associated dryness and other cosmetic changes. In supplements and fortified foods, vitamin D is available in two forms, D2 (ergocalciferol) and D3 (cholecalciferol). The two are equivalent at normal supplement doses. For women who require high supplement doses because of vitamin D deficiency, D3 may work better to raise blood levels. Some medications can prevent proper absorption of Vitamin D. These include laxatives, corticosteroids like prednisone, the seizure drugs phenobarbital and phenytoin, the weight-loss drug orlistat ( Xenical? and AlliTM) and the cholesterol-lowering drug cholestyramine (Questran?, LoCholest?, and Prevalite?). Talk to your doctor about adjusting your recommended daily vitamin D dosage if you take these medications. You should not exceed 4000 mg of vitamin D supplementation daily unless specifically prescribed by your doctor. Referring Provider: SELF [[id number]] Allergies As of Date: 08/07/2017 (No Known Allergies) Date Reviewed: 08/07/2017 Reviewed by: Loulou Munoz) JUVENCIO Snyder.DOUBLE SPINDLE SHAPER OPERATOR - Fully Assessed Reason for Visit: Well Woman [[id number]] Primary Visit Diagnosis:Encounter for gynecological examination (general) (routine) without abnormal findings [Z01.419] Other Visit Diagnosis:Visit for screening mammogram [Z12.31] Order(s):[facility] [[id number]] Order #: [id number] FUTURE Problem List As Of Date 08/07/2017 Noted Resolved HYPERLIPIDEMIA NEC/NOS [E78.5] INVALID FOR* OVERWEIGHT [E66.9] INVALID FOR*02/25/2013 Internal hemorrhoids without mention of complic*INVALID FOR* Special screening for malignant neoplasms, colo*INVALID FOR* Benign neoplasm of colon [D12.6] INVALID FOR* Premenopausal menorrhagia [N92.4] INVALID FOR*02/25/2013 Fibroids [D25.9] INVALID FOR*02/25/2013 Pelvic pressure in female [R10.2] INVALID FOR*02/25/2013 Rheumatoid arthritis [M06.9] INVALID FOR* GERD (gastroesophageal reflux disease) [K21.9] Hyperlipidemia [E78.5] Other instructions from your clinician: Replens moisturizer Coconut oil Calcium and Vitamin D Supplementation (from the National Institutes of Health Office of Dietary Supplements 2010) Calcium 600 mg twice daily and Vit D 1000 IU daily Calcium is required by the body for blood vessel, muscle, hormone and nerve functioning. Most of the body's calcium is stored in the bones and teeth where it supports structure and function. Bone is continuously broken down and reformed. When bone breakdown exceeds formation, especially in postmenopausal women, bone loss can increase the risk of osteoporosis and fractures. In addition to low calcium intake, women who smoke, have a family history of osteoporosis, are thin, or , or who take certain medications such as cancer chemotherapy, seizure mediations and steroids are at increased risk of osteoporosis. The calcium requirements in women change with age. The National Institutes of Health (NIH) recommends: 1000mg elemental calcium for premenopausal women age 19-50 1200mg elemental calcium for postmenopausal women and all women over 50 Milk, yogurt, and cheese are rich natural sources of calcium and are the major food contributors in the [place]. For example, 8oz of milk (whole, lowfat or skim) contains about 300mg calcium, 8oz of yogurt contains 415mg. Nondairy sources include salmon and sardines and vegetables, such as [place]ic cabbage, kale, and broccoli. Foods fortified with calcium include many fruit juices, tofu and cereals. For more food calcium content information, visit http://ods.od.nih.gov/factsheets/calcium. Calcium supplements come in several different forms. Remember that the recommendations are for millgrams (mg) of elemental calcium which may be less than the total weight of the supplement. The amount of elemental calcium is required to be printed on the label. Calcium carbonate is the least expensive form. It must be taken on a full stomach to be properly absorbed. Some patients may experience gas or constipation. Calcium phosphate and calcium citrate may be taken either with or without food and tend to have less side effects but are generally more expensive. Because of its ability to neutralize stomach acid, calcium carbonate is found in some zrpc-nbo-gdfcnwz antacid products, such as Tums? and Rolaids?. Depending on its strength, each chewable pill or softchew provides 200 to 400 mg of elemental calcium. The percentage of calcium absorbed depends on the total amount of elemental calcium consumed at one time. Absorption is highest in doses <500mg. So a woman who takes 1,000mg/day of calcium from supplements should split the dose and take 500mg at two separate times during the day. Too much calcium can cause kidney stones, constipation, difficulty absorbing other nutrients and calcium buildup in blood vessels. Women under 50 should not exceed 2500mg/day (2000mg/day for women over 50) of calcium from food and supplements. Excessive alcohol and caffeine intake can inhibit absorption of calcium. Calcium can reduce the absorption of some medications if taken at the same time of day (bisphosphonates, thyroid medication, Phenytoin and other seizure medications, some antibiotics and iron supplements). Vitamin D promotes calcium absorption in the gut and maintains adequate blood levels of calcium and phosphate for normal bone growth and bone remodeling. Vitamin D also helps regulate cell growth as well as nerve, muscle and immune system function. Vitamin D is produced in the skin as a result of ultraviolet sunlight rays and must be altered in the liver and kidney to become its active form. Recommended intake according to the National Institutes of Health is 600 International Units (IU) for girls and women ages 1-70 and 800 IU for women over 70. Very few foods in nature contain vitamin D. The flesh of fatty fish (such as salmon, tuna, and mackerel) and fish liver oils are among the best sources. Small amounts of vitamin D are found in beef liver, cheese, mushrooms and egg yolks. Most people meet at least some of their vitamin D needs through exposure to sunlight. Season, time of day, length of day, cloud cover, smog, skin melanin content, and sunscreen are among the factors that affect UV radiation exposure and vitamin D synthesis. Despite the importance of the sun for vitamin D synthesis, it is prudent to limit exposure of skin to sunlight and avoid tanning beds. UV radiation is a carcinogen responsible for most of the estimated 1.5 million skin cancers that occur annually in the [place]. Lifetime cumulative UV damage to skin is also responsible for some age-associated dryness and other cosmetic changes. In supplements and fortified foods, vitamin D is available in two forms, D2 (ergocalciferol) and D3 (cholecalciferol). The two are equivalent at normal supplement doses. For women who require high supplement doses because of vitamin D deficiency, D3 may work better to raise blood levels. Some medications can prevent proper absorption of Vitamin D. These include laxatives, corticosteroids like prednisone, the seizure drugs phenobarbital and phenytoin, the weight-loss drug orlistat ( Xenical? and AlliTM) and the cholesterol-lowering drug cholestyramine (Questran?, LoCholest?, and Prevalite?). Talk to your doctor about adjusting your recommended daily vitamin D dosage if you take these medications. You should not exceed 4000 mg of vitamin D supplementation daily unless specifically prescribed by your doctor. Disposition: Return in 1 year (on 08/07/2018) for Annual Exam. Follow-up and Disposition History Recorded Encounter Status:Closed by LOULOU SNYDER on 08/07/17 [facility]CO Observed: 08/07/2017 Status: COMPLETED Source: [place] 3:29 PM [facility] [place] REPOSITORY [facility] ID: [id number] Author: Mammography Coordinator Service: (none) Author Type: Physician Type: Letter Filed: 08/08/2017 11:32 PM Note Text: August 07, 2017 PID: [id number] Carmenza Artis [address] [place] [address] Dear Ms. Artis, We are pleased to inform you that the results of your recent breast imaging exam on 08/07/2017 are normal. Your mammogram demonstrates that you have dense breast tissue, which could hide abnormalities. Dense breast tissue, in and of itself, is a relatively common condition. Therefore, this information is not provided to cause undue concern; rather, it is to raise your awareness and promote discussion with your health care provider regarding the presence of dense breast tissue in addition to other risk factors. Early detection of cancer is very important. We also understand recommendations regarding breast cancer screening are controversial. Please discuss with your primary care provider which strategy is best for you and whether a mammogram is right for you. Your imaging studies and report will be kept on file at [facility] as part of your permanent medical record and are available for your continuing care. Thank you for allowing us to help in meeting your health care needs. Sincerely, Dr. Rosado Interpreting Radiologist [facility] (Normal over 40) PROGRESS Observed: 08/07/2017 Status: COMPLETED Source: [place] 3:07 PM [facility] REPOSITORY O ID: [id number] Author: Loulou (David) JUVENCIO Snyder.DAVID Service: (none) Author Type: Nurse Practitioner Type: Progress Notes Filed: 08/07/2017 3:59 PM Note Text: Carmenza Artis is a 57 year old who presents for her annual gynecologic exam without complaints. Postmenopausal: hysterectomy with LSO in 2011 HRT use: No. Last Pap: 2009 normal HPV: 2010 negative History of abnormal pap: No Last mammogram: today normal History of abnormal mammogram: No Sexually active: No Hot flashes: No Night sweats: No Vaginal dryness: Yes, mild Exercise: tore meniscus right, is unable to be physically active Diet: balanced Seatbelt use: Yes Obstetric History T0 L2 SAB0 TAB0 Ectopic0 Multiple0 Live Births0 PAST MEDICAL HISTORY Diagnosis Date - Arthritis - GERD (gastroesophageal reflux disease) - History of uterine fibroid - Hyperlipidemia - Obesity - Rheumatoid arthritis (HCC) PAST SURGICAL HISTORY Procedure Laterality Date - COLONOSCOP W/ OR W/O [facility] SPEC 09/22/2010 Colonoscopy - LIGATE FALLOPIAN TUBE - TOTAL ABDOM HYSTERECTOMY 01/2012 and LSO For fibroid uterus FAMILY HISTORY Problem Relation Age of Onset - a fib [OTHER] Mother - a fib [OTHER] Father - Breast Cancer Maternal Aunt - Cancer Maternal Grandmother cervical - Alzheimer's Disease Paternal Grandfather SOCIAL HISTORY Social History Substance Use Topics - Smoking status: Never Smoker - Smokeless tobacco: Never Used Comment: second hand smoke exposure - Alcohol use Yes REVIEW OF SYSTEMS Abdomen: No abdominal pain, nausea, vomiting, diarrhea, or constipation. No bloating, early satiety, indigestion, or increased flatulence. Bladder: No dysuria, gross hematuria, urinary frequency, urinary urgency, or incontinence Breast: No breast lumps, nipple d/c, overlying skin changes, redness or skin retraction Allergies and current medication updated:Yes EXAM: BP 106/70 Ht 5' 3.25 (1.61m) Wt 190 lb 12.8 oz (86.5kg) LMP 01/14/2012 BMI 33.51 kg/(m2). GENERAL: pleasant, female in no apparent distress HEENT: Normocephalic, atraumatic, mucus membranes moist and no lesions NECK: Supple, full range of motion, no adenopathy and thyroid normal DERMATOLOGY: Normal, without lesions, non-icteric and non-hirsute BREAST: soft, non-tender, symmetric, no dominant mass, normal nipple-areolar complex, no lymphadenopathy and no nipple discharge CHEST: Normal inspiratory effort ABDOMEN: soft, non-tender and no masses PELVIC: external genitalia normal, normal Bartholin's glands, urethra, [place]'s glands, no vulvar lesions, physiologic discharge present, normal appearing perineal body and perianal region, cervix surgically absent BIMANUAL: no adnexal masses, non-tender and uterus surgically absent RECTOVAGINAL: deferred. NEURO: alert and oriented x3,exam grossly non-focal EXTREMITIES: normal ASSESSMENT/PLAN: 1) Health maintenance: Pap/HPV screening no longer needed Mammogram up to date Nutrition, exercise and routine health maintenance exams reviewed. Calcium/Vitamin D supplementation information provided. Colon cancer screening: up to date with screening 2. Vaginal dryness, mild - Replens moisturizer - Coconut oil 3) Follow up one year or sooner as needed Loulou Snyder, LOCAL COORDINATOR.DOUBLE SPINDLE SHAPER OPERATOR [facility] Observed: 08/07/2017 Status: F Source: [place] 3:02 PM [facility] REPOSITORY * * *Final Report* * * DATE OF EXAM: Aug 07 2017 3:02PM ISAK Somers81 - [facility] SCRE[facility] / PROCEDURE REASON: Encounter for screening mammogram for malignant neoplasm of breast * * * * Physician Interpretation * * * * RESULT: #[id number] - [facility] SCREEN[facility] BILATERAL DIGITAL SCREENING MAMMOGRAM WITH CAD: 08/07/2017 HISTORY: Encounter For Screening Mammogram For Malignant Neoplasm Of Breast\ Screening Mammogram - patient reports NO breast symptoms /priors available for comparison. RESULT: TECHNIQUE: The study was acquired using full field digital technology and interpreted from soft copy. Current study was also evaluated with a Computer Aided Detection (CAD). Comparison is made to exams dated: 09/22/2014 mammogram, 02/25/2013 mammogram - [facility], and 03/16/2010 mammogram. The tissue of both breasts is heterogeneously dense. This may lower the sensitivity of mammography. No significant masses, calcifications, or other findings are seen in either breast. There has been no significant interval change. IMPRESSION: NEGATIVE There is no mammographic evidence of malignancy.A 1 year screening mammogram is recommended. Mg post/asad:08/07/2017 15:29:07 Industrial Psychology Professor: Arleth DAHL)(Alexsander), [facility] letter sent: Normal over 40 Mammogram BI-RADS: 1 Negative Cardiovascular Or Nurse: Asad Transcribe Date/Time: Aug 07 2017 3:03P Dictated by: MG ROSADO MD This examination was interpreted and the report reviewed and electronically signed by: MG ROSADO MD on Aug 07 2017 3:29PM EST [id number] [id number] Observed: 06/18/2017 Status: COMPLETED Source: [place] 7:41 PM [facility] REPOSITORY HNO ID: [id number] Author: Cony Smith) Kait Service: (none) Author Type: Physician Type: Progress Notes Filed: 06/19/2017 7:54 AM Note Text: Chief Complaint Patient presents with: Headache: patient fell in the rain on saturday - headache ever since. HPI Carmenza K Artis is a 56 year old female who presents here today for Above Complaints.. 4 days ago patient was walking on brick sidewalk at home and tripped and fell and hit her head on the sidewalk cutting her forehead. Did not have much bleeding after the fall and thinks that she remembers the entire fall. Does not believe she had LOC, but fall was not witnessed. Patient was not able to get up on her own and had to call her daughter in from the house to help her. Was able to walk to the house and drive herself home that night. Also had fall about 2 days ago at home tripping on end table, but did not hit her head this time. Since her first fall has been nauseous, forgetful, had trouble concentrating, and has had bilateral headache over temples and where she hit her head. 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 Has not been able to work a full day due to headache and fatigue. Feels exhausted when she gets home at night and will sleep for 1-3 hours. Has been treating her headache with Advil which takes the edge off. Feels like they are improving. Denies numbness, tingling, weakness, slurred speech, blurred vision. Past medical history, appointments, medications, allergies reviewed. Previous Medical History PAST MEDICAL HISTORY Diagnosis Date - Arthritis - GERD (gastroesophageal reflux disease) - History of uterine fibroid - Hyperlipidemia - Obesity - Rheumatoid arthritis (HCC) Previous Surgical History PAST SURGICAL HISTORY Procedure Laterality Date - COLONOSCOP W/ OR W/O [facility] SPEC 09/22/2010 Colonoscopy - LIGATE FALLOPIAN TUBE - TOTAL ABDOM HYSTERECTOMY 01/2012 and LSO For fibroid uterus Family History FAMILY HISTORY Problem Relation Age of Onset - a fib [OTHER] Mother - a fib [OTHER] Father - Breast Cancer Maternal Aunt - Cancer Maternal Grandmother cervical - Alzheimer's Disease Paternal Grandfather Patient Allergies ALLERGIES No Known Allergies Current Medications Current Outpatient Prescriptions on File Prior to Visit: azithromycin (ZITHROMAX) 250 mg tablet Take 2 tablets by mouth as directed. (Take the listed dose (i.e. 2 tabs) on day 1, then take one half of the listed dose (i.e. 1 tab) daily for days 2-5.) (Patient not taking: Reported on 06/18/2017 ) ranitidine (ZANTAC) 150 mg tablet Take 1 tablet by mouth twice daily. No current facility-administered medications on file prior to visit. 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[employer]* Social History Main Topics Smoking status: Never Smoker Smokeless status: Never Used Comment: second hand smoke exposure Alcohol use: Yes Drug use: No Sexual activity: Yes Partners with: Male control/protection: Surgical Comment: [facility] Review of Symptoms REVIEW OF SYSTEMS GENERAL: No weight loss, malaise or fevers RESPIRATORY: Negative for cough, hemoptysis, wheezing, COPD, dyspnea or shortness of breath CARDIOVASCULAR: Negative for chest pain, leg swelling, hypertension, CHF or palpitations GI: No nausea, vomiting, or diarrhea SKIN: Negative for lesions, rash, and itching NEURO: No history of syncope, paralysis, seizures or tremors EXAM: BP 112/72 Pulse 70 Temp 36.8 ?C (98.3 ?F) (Tympanic) Resp 10 Wt 88 kg (194 lb) LMP 01/14/2012 BMI 34.92 kg/m2 General Appearance: Well appearing, alert, in no acute distress, well-hydrated, well nourished.. Skin: Skin color, texture, turgor normal, no suspicious rashes or lesions. Lungs: Lungs clear to auscultation. No wheezing, rhonchi, rales. Heart: RRR without murmur, gallop, or rubs. No ectopy. Neurologic: Negative findings: speech normal, mental status intact, cranial nerves 2-12 intact, gait, including heel, toe, and tandem walking normal, Romberg negative, muscle tone normal, muscle strength normal, rapid alternating movements normal, finger to nose normal, sensation to light touch and pinprick normal, reflexes normal and symmetric. Health Maintenance List HEPATITIS C SCREENING due on 2002 MAMMOGRAM due on 09/23/2015 INFLUENZA(1) due on 01/18/2017 DIABETES SCREEN due on 05/15/2019 COLORECTAL CANCER SCREENING,SEE MODIFIER due on 09/22/2020 LIPID SCREEN due on 05/15/2021 TETANUS due on 06/21/2026 ASSESSMENT/PLAN: 1. Concussion without loss of consciousness, initial encounter - ICD9: 850.0, ICD10: S06.0X0A (primary diagnosis) Likely cause of headaches. Normal neuro exam today. Discussed brain rest and OTC analgesics for pain. Will give 2 days off work and discussed resting at home without stimulation such as TV, phone, or work. To call if symptoms worsen. Normal neuro exam today, will hold off on CT head today. 2. Fall in home, initial encounter - ICD9: E888.9, E849.0, ICD10: W19.XXXA, Y92.009 Mechanical fall. Denies joint pain. See above. 3. Injury of head, initial encounter - ICD9: 959.01, ICD10: S09.90XA See above. Cony Carballo MD CNOV Observed: 06/18/2017 Status: COMPLETED Source: [place] 7:20 PM [facility] REPOSITORY Office Visit (FAMPWS) CARMENZA ARTIS ([id number]) 1960 F Date Time Provider Department 06/18/17 7:20 PM CONY CARBALLO) FAMPWS During your visit today, we recorded the following information about you: Temperature Pulse Respiration Blood pressure 98.3 degrees 70/minute 10/minute 112/72 Weight 88 kg Cony Carballo MD 06/19/2017 7:54 AM Signed Chief Complaint Patient presents with: Headache: patient fell in the rain on saturday - headache ever since. HPI Carmenza Mirtha Chandra is a 56 year old female who presents here today for Above Complaints.. 4 days ago patient was walking on brick sidewalk at home and tripped and fell and hit her head on the sidewalk cutting her forehead. Did not have much bleeding after the fall and thinks that she remembers the entire fall. Does not believe she had LOC, but fall was not witnessed. Patient was not able to get up on her own and had to call her daughter in from the house to help her. Was able to walk to the house and drive herself home that night. Also had fall about 2 days ago at home tripping on end table, but did not hit her head this time. Since her first fall has been nauseous, forgetful, had trouble concentrating, and has had bilateral headache over temples and where she hit her head. 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 Has not been able to work a full day due to headache and fatigue. Feels exhausted when she gets home at night and will sleep for 1-3 hours. Has been treating her headache with Advil which takes the edge off. Feels like they are improving. Denies numbness, tingling, weakness, slurred speech, blurred vision. Past medical history, appointments, medications, allergies reviewed. Previous Medical History PAST MEDICAL HISTORY Diagnosis Date - Arthritis - GERD (gastroesophageal reflux disease) - History of uterine fibroid - Hyperlipidemia - Obesity - Rheumatoid arthritis (HCC) Previous Surgical History PAST SURGICAL HISTORY Procedure Laterality Date - COLONOSCOP W/ OR W/O [facility] SPEC 09/22/2010 Colonoscopy - LIGATE FALLOPIAN TUBE - TOTAL ABDOM HYSTERECTOMY 01/2012 and LSO For fibroid uterus Family History FAMILY HISTORY Problem Relation Age of Onset - a fib [OTHER] Mother - a fib [OTHER] Father - Breast Cancer Maternal Aunt - Cancer Maternal Grandmother cervical - Alzheimer's Disease Paternal Grandfather Patient Allergies ALLERGIES No Known Allergies Current Medications Current Outpatient Prescriptions on File Prior to Visit: azithromycin (ZITHROMAX) 250 mg tablet Take 2 tablets by mouth as directed. (Take the listed dose (i.e. 2 tabs) on day 1, then take one half of the listed dose (i.e. 1 tab) daily for days 2-5.) (Patient not taking: Reported on 06/18/2017 ) ranitidine (ZANTAC) 150 mg tablet Take 1 tablet by mouth twice daily. No current facility-administered medications on file prior to visit. 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[employer]* Social History Main Topics Smoking status: Never Smoker Smokeless status: Never Used Comment: second hand smoke exposure Alcohol use: Yes Drug use: No Sexual activity: Yes Partners with: Male control/protection: Surgical Comment: [facility] Review of Symptoms REVIEW OF SYSTEMS GENERAL: No weight loss, malaise or fevers RESPIRATORY: Negative for cough, hemoptysis, wheezing, COPD, dyspnea or shortness of breath CARDIOVASCULAR: Negative for chest pain, leg swelling, hypertension, CHF or palpitations GI: No nausea, vomiting, or diarrhea SKIN: Negative for lesions, rash, and itching NEURO: No history of syncope, paralysis, seizures or tremors EXAM: BP 112/72 Pulse 70 Temp 36.8 ?C (98.3 ?F) (Tympanic) Resp 10 Wt 88 kg (194 lb) LMP 01/14/2012 BMI 34.92 kg/m2 General Appearance: Well appearing, alert, in no acute distress, well-hydrated, well nourished.. Skin: Skin color, texture, turgor normal, no suspicious rashes or lesions. Lungs: Lungs clear to auscultation. No wheezing, rhonchi, rales. Heart: RRR without murmur, gallop, or rubs. No ectopy. Neurologic: Negative findings: speech normal, mental status intact, cranial nerves 2-12 intact, gait, including heel, toe, and tandem walking normal, Romberg negative, muscle tone normal, muscle strength normal, rapid alternating movements normal, finger to nose normal, sensation to light touch and pinprick normal, reflexes normal and symmetric. Health Maintenance List HEPATITIS C SCREENING due on 2002 MAMMOGRAM due on 09/23/2015 INFLUENZA(1) due on 01/18/2017 DIABETES SCREEN due on 05/15/2019 COLORECTAL CANCER SCREENING,SEE MODIFIER due on 09/22/2020 LIPID SCREEN due on 05/15/2021 TETANUS due on 06/21/2026 ASSESSMENT/PLAN: 1. Concussion without loss of consciousness, initial encounter - ICD9: 850.0, ICD10: S06.0X0A (primary diagnosis) Likely cause of headaches. Normal neuro exam today. Discussed brain rest and OTC analgesics for pain. Will give 2 days off work and discussed resting at home without stimulation such as TV, phone, or work. To call if symptoms worsen. Normal neuro exam today, will hold off on CT head today. 2. Fall in home, initial encounter - ICD9: E888.9, E849.0, ICD10: W19.XXXA, Y92.009 Mechanical fall. Denies joint pain. See above. 3. Injury of head, initial encounter - ICD9: 959.01, ICD10: S09.90XA See above. Cony Carballo MD Referring Provider: SELF [200] Allergies As of Date: 06/18/2017 (No Known Allergies) Date Reviewed: 06/18/2017 Reviewed by: Riley Costa Ma - Fully Assessed Reason for Visit: Headache [52] Cmt: patient fell in the rain on saturday - headache ever since. Primary Visit Diagnosis:Concussion without loss of consciousness, initial encounter [S06.0X0A] Other Visit Diagnoses:Fall in home, initial encounter [W19.XXXA, Y92.009] Injury of head, initial encounter [S09.90XA] Problem List As Of Date 06/18/2017 Noted Resolved HYPERLIPIDEMIA NEC/NOS [E78.5] INVALID FOR* OVERWEIGHT [E66.9] INVALID FOR*02/25/2013 Internal hemorrhoids without mention of complic*INVALID FOR* Special screening for malignant neoplasms, colo*INVALID FOR* Benign neoplasm of colon [D12.6] INVALID FOR* Premenopausal menorrhagia [N92.4] INVALID FOR*02/25/2013 Fibroids [D25.9] INVALID FOR*02/25/2013 Pelvic pressure in female [R10.2] INVALID FOR*02/25/2013 Rheumatoid arthritis [M06.9] INVALID FOR* GERD (gastroesophageal reflux disease) [K21.9] Hyperlipidemia [E78.5] Medications Discontinued During This Encounter ranitidine (ZANTAC) 150 mg tablet 60 t* 3 05/02/2016 06/18/2017 Route: ORAL Sig: Take 1 tablet by mouth twice daily. Disc: Reason for discontinue is not on file. azithromycin (ZITHROMAX) 250 mg tabl* 6 ta* 0 09/17/2016 06/18/2017 Class: Print RX Route: ORAL Sig: Take 2 tablets by mouth as directed. (Take the listed dose (i.e. 2 tabs) on day 1, then take one half of the listed dose (i.e. 1 tab) daily for days 2-5.) Patient not taking: Reported on 06/18/2017 Disc: Reason for discontinue is not on file. Disposition: Return if symptoms worsen or fail to improve. Follow-up and Disposition History Recorded Letter Text Cony Carballo M.D [address] [place], [place] [address] 06/18/2017 TO WHOM IT MAY CONCERN: This is to confirm that Carmenza Artis had an appointment and was [facility] in the Department of Family Medicine by Tita Mera 06/18/2017 and may return to work on 06/21/2017. Sincerely yours, Cony Carballo M.D Encounter Status:Closed by CONY CARBALLO MD on 06/19/17 ALLERGIES ALLERGIES DATE TYPE / CODE NAME / CODE REACTION SEVERITY SOURCE 06/10/2018 Drug No Known Unknown [facility] Allergy/416 Allergies/N63278 Hospital 541131(SNOM 0388(RXNORM) Repository ED CT) Drug NO KNOWN [facility] Class/20704 ALLERGIES Main [place] 1003(SNOMED Repository CT) ENCOUNTERS ENCOUNTERS ADMIT/DISCHARGE ACCOUNT NUMBER ADMITTING ENCOUNTER LOCATION SOURCE CLASS 06/16/2018 [id number] Ambulatory [facility] ding:[facility] Repository 06/11/2018 [id number] Ambulatory BMSBuilding: [place] BMS.CF.[facility] Repository 06/11/2018 [id number] Ambulatory [facility] ding:[facility] Repository 06/10/2018/06/10/19 [id number] Ambulatory BMSBuilding: [place] 19 BMS.[facility] Repository 06/05/2018/06/05/19 [id number] Ambulatory [address] Repository 06/05/2018/06/05/19 [id number] Ambulatory [address] Repository 06/05/2018/06/06/19 [id number] Ambulatory [address] Repository 06/03/2018/06/03/19 [id number] Ambulatory BBuilding:RA [place] [address] [place] [address] Repository 06/03/2018/06/03/19 [id number] Ambulatory BBuilding:OP [place] [address] [place] [address] Repository 05/28/2018 [id number] Ambulatory BBuilding:OS [place] [facility] Repository 01/24/2018 [id number] Ambulatory [facility] ding:[facility] Repository 01/23/2018/01/24/20 [id number] Ambulatory BMSBuilding: [place] Repository 09/18/2017 [id number] Ambulatory [facility] ding:[facility] Repository 09/18/2017 [id number] [facility] 08/07/2017/08/09/19 [id number] Ambulatory [address] Repository 08/07/2017/08/08/19 [id number] Ambulatory [address] Repository 06/18/2017/06/18/19 [id number] Ambulatory [address] Repository PAYERS PAYERS ENCOUNTER GUARANTOR PAYER SUBSCRIBER SOURCE 06/16/2018 LIN James Primary CARMENZA Mirtha [place] [id number] W Insurance:MEDICAL CHERRYDOB: [facility] [id number] Number: Repository [address]Dex: [phone] [id number] [phone] () Date:5925-03-45CX [address] [place] [phone]: 06/16/2018 Secondary NOT GIVENUNK [place] Insurance:SELF PAY [facility] Number: Effective Repository Date:2018-06-10 06/11/2018 LIN James Primary CARMENZA Mirtha [place] [id number] W Insurance:MEDICAL CHERRYDOB: [facility] [id number], [place] Number: Repository [address]Xnr: [phone] [id number] [phone] () Date:4446-26-[address] [address]RF: 06/11/2018 Secondary NOT GIVENUNK [place] Insurance:SELF PAY [facility] Number: Effective Repository Date:2018-06-11 06/11/2018 LIN James Primary CARMENZA K [place] [id number] W Insurance:MEDICAL CHERRYDOB: [facility] [id number] Number: Repository [address]Eqt: [phone] [id number] [phone] () Date:3935-14-49AZ [address] [address]TA: 06/11/2018 Secondary NOT GIVENUNK [place] Insurance:SELF PAY [facility] Number: Effective Repository Date:2018-06-10 06/10/2018 CARMENZA K Primary CARMENZA K [place] [id number] W Insurance:MEDICAL CHERRYDOB: [facility] [id number], [place] Number: Repository [address]Mhp: [phone] [id number] [phone] () Date:7897-87-88IK [address] [address]ML: 06/10/2018 Secondary NOT GIVENUNK [place] Insurance:SELF PAY [facility] Number: Effective Repository Date:2018-06-09 06/03/2018 CARMENZA K Primary CARMENZA K [facility] CHERRYDOB: Insurance:MEDICAL CHERRYDOB: [facility] [id number] Repository [place] [facility] [employer] Number: [address] [place], [id number] [place] [address]Tko: Date:2018-06-03 - [place] [address]Wys: [id number] () Name:BPO Box ()Tel: [phone]) [phone], [place] 000-0000 [id number]: 06/03/2018 CARMENZA K Primary CARMENZA K [facility] CHERRYDOB: Insurance:MEDICAL CHERRYDOB: [facility] [id number] Repository [facility] Number: [address] [facility] [place], [id number], [place] [address]Lpu: Date:2018-06-03 [facility] [address]Csv: [id number] () Name:[facility] Box ()Tel: [phone] [place] [address] [phone] ) [address]VM: 01/24/2018 Lin James Primary CARMENZA [place] [id number] [address] Insurance:MEDICAL CHERRYDOB: [facility] [id number], [place] Number: Repository [address]Tzo: [phone] [id number] [phone] () Date:9683-78-40BS [address] [place] [phone]: 01/24/2018 Secondary NOT GIVENUNK [place] Insurance:SELF PAY [facility] Number: Effective Repository Date:2018-01-23 01/23/2018 Lin James Primary CARMENZA Mirtha [place] [id number] [address] Insurance:MEDICAL CHERRYDOB: [facility] [id number] [place], [place] Number: Repository [address]Weh: [phone] [id number] [phone] () Date:7181-52-53PP [address] [place] [address]QG: 01/23/2018 Secondary NOT GIVENUNK [place] Insurance:SELF PAY [facility] Number: Effective Repository Date:2018-01-10 09/18/2017 Lin James Primary CARMENZA K [place] [id number] W Insurance:MEDICAL CHERRYDOB: [facility] [id number], [place] Number: Repository [address]Wig: [id number] [phone] Date:1146-96-52QE [address] () [address] [place] [phone]: 09/18/2017 Secondary NOT GIVENUNK [place] Insurance:SELF PAY [facility] Number: Effective Repository Date:2017-09-18 09/18/2017 Lin James Primary CARMENZA K [place] [id number] [address] Insurance:MEDICAL CHERRYDOB: [facility] [id number], [place] Number: Repository [address]Nas: [id number] [phone] Date:5961-42-05GA [address] ([place]) [place], [place] [address]CZ: 09/18/2017 Secondary NOT GIVENTATIANA Tamez Insurance:SELF PAY [facility] Number: Effective Repository Date:2017-09-18
== END ==
PROVIDERS: Family Provider Family Medicine; PCP Family Medicine; Referring Provider Internal Medicine Cardiovascular Disease; Visit Provider Internal Medicine Cardiovascular Disease
DX: R94.31 Abnormal electrocardiogram [ECG] [EKG] (principal); Z01.810 Encounter for preprocedural cardiovascular examination
CPT/HCPCS: 36415; 80061; 80076; 93017; 93350; J7040; Q9957; A4216; C8928

== ENCOUNTER → 2018-06-16 13:40 | Outpatient (CLI) | payer OTHER, SELFPAY ==
[2018-06-10 15:10] VITALS: BMI 34.9
--- NOTE | 2018-06-16 13:47 | ECHOCS_ITS ---
Reason For Study: Abn EKG, Preop Procedure This was a 2D Doppler, Color Flow transthoracic echocardiogram. Contrast injection was performed. Exam performed in department. Left Ventricle Normal size and thickness. The estimated ejection fraction is 65 %. Stage 1 diastolic dysfunction. No regional wall motion abnormalities noted. Right Ventricle Normal size and thickness. Normal systolic function. Atria Normal left atrium. Normal right atrium. Normal atrial septum. Mitral Valve The mitral valve is structurally normal. No prolapse or stenosis seen. Tricuspid Valve Normal tricuspid valve. Trivial tricuspid valve insufficiency. Right ventricular systolic pressure estimated to be 18 mmHg. Aortic Valve Normal aortic valve. Trisinus/trileaflet aortic valve. Pulmonic Valve Normal pulmonic valve. Trivial pulmonic valve insufficiency. Great Vessels Normal aortic root. Normal arch. Normal inferior vena cava. Inferior vena cava collapse with sniff. Pericardium/Pleural No pericardial effusion. Medication Definity0.4ml given slow IV push to enhance endocardial definition. MMode/2D Measurements & Calculations LVIDd: 4.1 cm IVSd: 1.1 cm Ao root diam: 2.9 cm LVIDs: 2.4 cm LVPWd: 0.98 cm RVDd: 2.8 cm FS: 41.5 % LAV(MOD-bp): 33.2 ml LVAd ap4: 25.8 cm2 SV(MOD-sp4): 51.5 ml LAV(MOD-bp) Indexed: 17.4 ml/m2 EDV(MOD-sp4): 74.0 ml LAV(MOD-sp2): 28.5 ml EDV(sp4-el): 74.9 ml LAV(MOD-sp4): 32.2 ml LVAs ap4: 13.1 cm2 ESV(MOD-sp4): 22.6 ml ESV(sp4-el): 21.6 ml EF(MOD-sp4): 69.5 % EF(sp4-el): 71.2 % SV(sp4-el): 53.3 ml LA A4 area: 13.9 cm2 LA dimension(2D): 3.9 cm RA A4 area: 13.6 cm2 Doppler Measurements & Calculations MV E max azam: 53.2 cm/sec Lat Peak E' Azam: 9.9 cm/sec Med Peak E' Azam: 6.8 cm/sec MV A max azam: 73.7 cm/sec E/E' lat: 5.4 E/E' med: 7.9 MV E/A: 0.72 Ao V2 max: 122.9 cm/sec LV V1 max: 89.5 cm/sec PA V2 max: 116.5 cm/sec Ao max P.0 mmHg LV V1 max P.2 mmHg Ao V2 mean: 86.2 cm/sec Ao mean P.3 mmHg Ao V2 VTI: 19.5 cm TR max azam: 184.6 cm/sec TR max P.6 mmHg Interpretation Summary The estimated ejection fraction is 65 %. Stage 1 diastolic dysfunction. Trivial tricuspid valve insufficiency. Right ventricular systolic pressure estimated to be 18 mmHg. The study was technically difficult. There is no comparison study available. Contrast injection was performed. Ordering Physician: Benjamin Hope Referring Physician: Dave Carballo Performed By: Janell Jason, WILLIAM, RVT
== END ==
PROVIDERS: Family Provider Family Medicine; PCP Family Medicine; Referring Provider Internal Medicine Cardiovascular Disease; Visit Provider Internal Medicine Cardiovascular Disease
DX: Z01.810 Encounter for preprocedural cardiovascular examination (principal); R94.31 Abnormal electrocardiogram [ECG] [EKG]
CPT/HCPCS: 93306; Q9957; A4216; C8929

== ENCOUNTER → 2018-06-20 10:16 | Outpatient (CLI) | payer OTHER, SELFPAY ==
[2018-06-10 15:10] VITALS: BMI 34.9
[2018-06-20 11:10] LABS: Albumin, Serum 3.8 g/dL (3.2-5.0)
== END ==
PROVIDERS: Family Provider Family Medicine; PCP Family Medicine; Referring Provider Specialist; Visit Provider Specialist
DX: Z01.812 Encounter for preprocedural laboratory examination (principal)
CPT/HCPCS: 36415; 82040

== ENCOUNTER → 2019-04-15 07:34 | Outpatient (CLI) | payer OTHER, SELFPAY ==
[2018-11-28 13:01] VITALS: BMI 35.0
[2019-04-15 09:01] LABS: AST(SGOT) 25 U/L (15-37); Alanine Aminotransfer ALT/SGPT 33 U/L (13-56); Albumin, Serum 3.8 g/dL (3.2-5.0); Alkaline Phosphatase 104 U/L (45-117); Bilirubin, Direct 0.13 mg/dL (0.00-0.30); Cholesterol 249 mg/dL (200); Globulin 3.7 g/dL (2.2-4.2); High Density Lipoprotein 51 mg/dL; Protein, Total 7.5 g/dL (6.4-8.2); Triglycerides 140 mg/dL; Very Low Density Lipoprotein 28 mg/dL (5-40)
== END ==
PROVIDERS: Family Provider Family Medicine; PCP Family Medicine; Referring Provider Internal Medicine Cardiovascular Disease; Visit Provider Internal Medicine Cardiovascular Disease
DX: E78.5 Hyperlipidemia, unspecified (principal)
CPT/HCPCS: 36415; 80061; 80076

== ENCOUNTER → 2019-06-15 11:01 | Outpatient (CLI) | payer OTHER, SELFPAY ==
[2018-11-28 13:01] VITALS: BMI 35.0
[2019-06-15 13:11] LABS: AST(SGOT) 25 U/L (15-37); Alanine Aminotransfer ALT/SGPT 35 U/L (13-56); Albumin, Serum 3.8 g/dL (3.2-5.0); Alkaline Phosphatase 100 U/L (45-117); Cholesterol 154 mg/dL (200); Globulin 3.7 g/dL (2.2-4.2); High Density Lipoprotein 55 mg/dL; Protein, Total 7.5 g/dL (6.4-8.2); Triglycerides 134 mg/dL; Very Low Density Lipoprotein 27 mg/dL (5-40)
== END ==
PROVIDERS: PCP Family Medicine; Referring Provider Internal Medicine Cardiovascular Disease; Visit Provider Internal Medicine Cardiovascular Disease
DX: E78.5 Hyperlipidemia, unspecified (principal)
CPT/HCPCS: 36415; 80061; 80076

== ENCOUNTER → 2020-06-01 08:17 | Outpatient (CLI) | payer OTHER, SELFPAY ==
[2020-01-12 09:07] VITALS: BMI 33.8
[2020-06-01 10:01] LABS: AST(SGOT) 24 U/L (15-37); Alanine Aminotransfer ALT/SGPT 31 U/L (13-56); Albumin, Serum 3.7 g/dL (3.2-5.0); Alkaline Phosphatase 102 U/L (45-117); Bilirubin, Direct 0.15 mg/dL (0.00-0.30); Cholesterol 163 mg/dL (200); Globulin 3.7 g/dL (2.2-4.2); High Density Lipoprotein 54 mg/dL; Protein, Total 7.4 g/dL (6.4-8.2); Triglycerides 106 mg/dL; Very Low Density Lipoprotein 21 mg/dL (5-40)
== END ==
PROVIDERS: Internal Medicine Cardiovascular Disease; PCP Family Medicine; Referring Provider Internal Medicine Cardiovascular Disease; Visit Provider Internal Medicine Cardiovascular Disease
DX: E78.5 Hyperlipidemia, unspecified (principal)
CPT/HCPCS: 36415; 80061; 80076

== ENCOUNTER → 2021-02-10 07:22 | Outpatient (CLI) | payer OTHER, SELFPAY ==
[2021-02-10 08:42] LABS: AST(SGOT) 29 U/L (15-37); Alanine Aminotransfer ALT/SGPT 41 U/L (13-56); Albumin, Serum 3.5 g/dL (3.2-5.0); Alkaline Phosphatase 98 U/L (45-117); Bilirubin, Direct 0.13 mg/dL (0.00-0.30); Cholesterol 144 mg/dL (200); Globulin 3.7 g/dL (2.2-4.2); High Density Lipoprotein 50 mg/dL; Protein, Total 7.2 g/dL (6.4-8.2); Triglycerides 97 mg/dL; Very Low Density Lipoprotein 19 mg/dL (5-40)
== END ==
PROVIDERS: PCP Family Medicine; Referring Provider Internal Medicine Cardiovascular Disease; Visit Provider Internal Medicine Cardiovascular Disease
DX: E78.00 Pure hypercholesterolemia, unspecified (principal); E78.5 Hyperlipidemia, unspecified
CPT/HCPCS: 36415; 80061; 80076

== ENCOUNTER → 2021-03-24 15:02 | Outpatient (CLI) | payer OTHER, SELFPAY ==
[2021-03-24 15:45] LABS: D-Dimer Quantitative (DVT/PE) 0.75 FEU/ug/m (0.27-0.49)
== END ==
PROVIDERS: PCP Family Medicine; Visit Provider Family Medicine
DX: R06.02 Shortness of breath (principal); R07.89 Other chest pain
CPT/HCPCS: 85379

== ENCOUNTER 2023-06-17 07:46 | Emergency (ER) | payer OTHER, SELFPAY ==
[2023-06-17 07:46] VITALS: BP 157/78; TEMP 36.6; BMI 34.7
[2023-06-17 08:06] VITALS: O2SAT 97
[2023-06-17] MEDS: Ipratropium/Albuterol Sulfate 3 ML AMPUL.NEB INHALATION (08:25)
[2023-06-17 08:26] VITALS: PULSE 80; RESP 16
[2023-06-17 08:28] LABS: Absolute Lymphocyte Count 0.82 X10^3/uL (0.83-4.51); Absolute Neutrophil Count 6.8 X10^3/uL (2.0-7.7); Basophil# 0.07 X10^3/uL; Basophil% 0.8 % (0-1); Eosinophil# 0.29 X10^3/uL; Eosinophils% 3.3 % (0-5); Hematocrit 45.8 % (37-47); Hemoglobin 15.5 g/dL (12.0-15.0); Lymphocyte # 0.82 X10^3/ul (0.83-4.51); Lymphocyte % 9.5 % (19-41); Mean Corp Hgb Conc 33.8 g/dL (32-36); Mean Corpuscular Hgb 30.3 pg (27.0-32.0); Mean Corpuscular Volume 89.6 fL (81-99); Mean Platelet Vol. 11.6 fl (6.2-12.0); Monocyte# 0.71 X10^3/uL; Monocyte% 8.2 % (0-10); NRBC Flagged by Analyzer 0 % (0-5); Neutrophil # 6.75 X10^3/uL (2.7-7.7); Neutrophil % 77.9 % (47-70); Platelet Count 170 K/mm3 (150-450); RBC Distribution Width CV 12.5 % (11.6-14.6); RBC Distribution Width SD 41.2 fl (35.1-43.9); Red Blood Count 5.11 M/mm3 (4.2-5.4); White Blood Count 8.7 K/mm3 (4.4-11.0)
[2023-06-17 08:33] VITALS: O2SAT 97
--- NOTE | 2023-06-17 08:35 | RAD_ITS ---
STUDY: X-RAY CHEST REASON FOR EXAM: Female, 62 years old. Chest pain TECHNIQUE: PA and lateral views of the chest. COMPARISON: None. FINDINGS: The lungs are clear and expanded. Scattered calcified granulomas. There is no demonstrated pleural abnormality. Normal size heart. Normal mediastinum and chris. Normal visualized pulmonary arteries. Normal visualized aortic arch and descending thoracic aorta. There are diffuse degenerative changes of the visualized thoracic spine. Normal visualized ribs, clavicles, and shoulders. There is no demonstrated abnormality of the visualized soft tissue structures of the upper abdomen. RAD/Chest PA and Lateral IMPRESSION: No acute abnormality seen. Electronically Signed: Stewart Abdul MD at 8:59 EST ,
[2023-06-17 08:47] LABS: Anion Gap 4 (5-15); BUN 13 mg/dL (7-18); BUN/Creat Ratio 13.9 RATIO (10-20); Calcium,Total 9.4 mg/dL (8.5-10.1); Chloride 110 mmol/L (98-107); Creatinine, Serum 0.93 mg/dL (0.55-1.02); EST Glomerular Filtration Rate 64 mL/min (>60); Est Glom Filt Rate - Afr Amer 78 mL/min (>60); Estimated Creatinine Clearance 64.71 ml/min; Glucose 101 mg/dL (74-106); Potassium 3.9 mmol/L (3.5-5.1); Sodium Level 139 mmol/L (136-145); Troponin-I HS 6 pg/mL (3.0-54.0)
--- OUTSIDE RECORDS SUMMARY | 2023-06-17 09:05 | XMS RPT_ITS | CCD ---
Author Name Unknown Address [address] [place] [address] Organization [facility] Care Team Providers Care Lithographic Camera Operator Name Role Phone LOS MCKEON Attending Unavailable CONY CARBALLO Primary Care Unavailable LOS MCKEON Attending Unavailable CONY CARBALLO Primary Care Unavailable LOS MCKEON Attending Unavailable CONY CARBALLO Primary Care Unavailable Cony Carballo MD Primary Care Provider Cony Carballo MD Primary Care Provider CONY CARBALLO Primary Care Unavailab PAU Santillan Attending Unavailable CONY CARBALLO Primary Care Unavailab CONY Contreras Referring Unavailab CONY Contreras Primary Care Unavailab CONY Contreras Referring Unavailab CONY Contreras Primary Care Unavailab CONY Contreras Referring Unavailab CONY Contreras Primary Care Unavailab le Medications Current Medications Medication Drug Class(es) Dates Sig (Normalized) Sig (Original) benzonatate 100 mg oral capsule (2 sources) Non-narcotic Antitussive Start: 07-12-2022 End: 07-27-2022 take 1 capsule by mouth every eight hours as needed for cough and cough benzonatate (TESSALON PERLE) 100 mg capsule Indications: Acute cough Take 1 capsule by mouth every 8 hours as needed for cough for up to 15 days. 30 capsule 0 07/12/2022 07/27/2022 Active Completed/Discontinued Medications Medication Drug Class(es) Dates Sig (Normalized) Sig (Original) atorvastatin 40 mg oral tablet (6 sources) HMG-CoA Reductase Inhibitor Start: 04-12-2021 take 1 tablet by mouth once daily atorvastatin (LIPITOR) 40 mg tablet Indications: Pure hypercholesterolemia Take 1 tablet by mouth once daily. 90 tablet 2 04/12/2021 Active Problems Active Problems Problem Classification Problem Date Documented Date Episodic/Chronic Disorders of lipid metabolism (6 sources) Hyperlipidemia; Translations: [Hyperlipidemia, unspecified] 06-21-2016 Chronic Esophageal disorders (6 sources) Gastroesophageal reflux disease; Translations: [Gastro-esophageal reflux disease without esophagitis] 06-21-2016 Chronic Menopausal disorders (9 sources) Genitourinary syndrome of menopause; Translations: [Other specified menopausal and perimenopausal disorders] Onset: 1 Chronic Nonmalignant breast conditions (1 source) Mammographic microcalcification found on diagnostic imaging of breast; Translations: [Mammographic microcalcification found on diagnostic imaging of breast] Onset: 4 Episodic Other liver diseases (6 sources) Steatosis of liver; Translations: [Fatty (change of) liver, not elsewhere classified] Onset: 1 03-30-2021 Chronic Other lower respiratory disease (1 source) Cough; Translations: [Acute cough] Episodic Other screening for suspected conditions (not mental disorders or infectious disease) (8 sources) Patient encounter status; Translations: [Encounter for screening for malignant neoplasm of colon] Onset: 1 09-22-2010 Episodic Other upper respiratory infections (1 source) Acute sinusitis; Translations: [Acute sinusitis, unspecified] Episodic Rheumatoid arthritis and related disease (6 sources) Rheumatoid arthritis; Translations: [Rheumatoid arthritis, unspecified] Onset: 3 03-24-2021 Chronic Past or Other Problems Problem Classification Problem Date Documented Da te Episodic/Chronic Hemorrhoids (6 sources) Internal hemorrhoids; Translations: [Other hemorrhoids] Onset: 09-22-2010 09-22-2010 Episodic Other and unspecified benign neoplasm (6 sources) Benign neoplasm of colon; Translations: [Benign neoplasm of colon, unspecified] Onset: 09-22-2010 09-22-2010 Episodic Other diseases of kidney and ureters (6 sources) Cyst of kidney; Translations: [Cyst of kidney, acquired] Onset: 03-30-2021 03-30-2021 Episodic Results Test Name Value Interpretation Reference Range Facil ity Vital Signs Date Time Vital Sign Value Performing Clinician Oksana mack 07-12-2022 07:55-0500 Body temperature 97.7 [degF] Wally Wallace MD Work Phone: [facility] 07-12-2022 07:55-0500 Body weight 92.08 kg Wally Wallace MD Work Phone: [facility] 07-12-2022 07:55-0500 Diastolic blood pressure 80 mm[Hg] Wally Wallace MD Work Phone: [facility] 07-12-2022 07:55-0500 Heart rate 64 /min Wally Wallace MD Work Phone: [facility] 07-12-2022 07:55-0500 Respiratory rate 18 /min Wally Wallace MD Work Phone: [facility] 07-12-2022 07:55-0500 SaO2% (BldA) [Mass fraction] 97 % Wally Wallace MD Work Phone: [facility] 07-12-2022 07:55-0500 Systolic blood pressure 118 mm[Hg] Wally Wallace MD Work Phone: [facility] Encounters Encounter Date Encounter Type Care Provider Facility Start: 06-05-2023 End: 06-06-2023 ambulatory PAU REYNOSO Facility:[facility] Start: 05-29-2023 End: 05-29-2023 ambulatory CONY CARBALLO Facility:[facility] Start: 05-09-2023 End: 05-09-2023 ambulatory CONY CARBALLO Facility:[facility] Start: 04-29-2023 Refill Loulou DAMON RN.TELEPHONE ORDER DISPATCHER Work Phone: OB/Gynecology Procedures Date Procedure Procedure Detail Performing Clinician Start: 06-28-2021 Mammography Loulou perry APRN.TELEPHONE ORDER DISPATCHER Work Phone: Start: 10-07-2020 Colonoscopy Loulou perry APRN.TELEPHONE ORDER DISPATCHER Work Phone: Start: 08-30-2020 Adult depression scr eening assessment Loulou Snyder APRN.TELEPHONE ORDER DISPATCHER Work Phone: Start: 06-01-2020 Lipid 1996 panel - S nader or Plasma Loulou Snyder APRN.TELEPHONE ORDER DISPATCHER Work Phone: Plan of Treatment Date Care Activity Detail Author Start: 06-21-2026 Urine microalbumin profile [facility] Start: 06-01-2025 Lipid 1996 panel - Serum or Plasma Lipid Screening [facility] Start: 06-01-2025 LIPID SCREEN LIPID SCREEN [facility] Start: 03-24-2024 DIABETES SCREEN DIABETES SCREEN [facility] Start: 03-24-2024 Diabetes Screening Diabetes Screening [facility] Start: 10-08-2023 Colonoscopy COLONOSCOPY [facility] Start: 10-08-2023 COLORECTAL CANCER SCREENING COLORECTAL CANCER SCREENING [facility] Start: 01-18-2023 Covid-19 Vaccine () Covid-19 Vaccine () [facility] Start: 01-18-2023 Influenza vaccination Influenza Vaccine (#1) [facility] Start: 06-28-2022 Mammography [facility] Start: 05-20-2022 DEPRESSION ASSESSMENT DEPRESSION ASSESSMENT [facility] Start: 01-18-2022 Influenza vaccination INFLUENZA (#1) [facility] Start: 09-08-2021 COVID-19 VACCINE (4 - Booster for Pfizer series) COVID-19 VACCINE (4 - Booster for Pfizer series) [facility] Start: 08-30-2021 Adult depression screening assessment DEPRESSION SCREENING [facility] Start: 07-05-2021 COVID-19 VACCINE (4 - Booster for Pfizer series) COVID-19 VACCINE (4 - Booster for Pfizer series) [facility] Start: 2018 RSV Vaccine (1 - 1-dose 60+ series) RSV Vaccine (1 - 1-dose 60+ series) [facility] Start: 2008 SHINGRIX VACCINE (1 of 2) SHINGRIX VACCINE (1 of 2) [facility] Start: 2003 COLOGUARD (FIT-DNA) COLOGUARD (FIT-DNA) [facility] Start: [address] COLONOGRAPHY [facility] Start: 2003 FECAL OCCULT BLOOD FECAL OCCULT BLOOD [facility] Start: 2003 SIGMOIDOSCOPY SIGMOIDOSCOPY [facility] Start: 1976 HEPATITIS C SCREENING HEPATITIS C SCREENING [facility] Start: 1976 HIV SCREENING HIV SCREENING [facility] SARS-CoV-2 (COVID-19 ) RNA [Presence] in Respiratory specimen by DYLON with probe detection 2019 CORONAVIRUS Microbiology Routine Acute cough Acute non-recurrent sinusitis, unspecified location Ordered: 07/12/2022 [facility] Work Phone: Immunizations Immunization Date Immunization Notes Care Provider Kelly mackay 03-21-2022 influenza virus vaccine, unspecified formulation Loulou Snyder APRN.[facility] Work Phone: [facility] 05-10-2021 COVID-19 vaccine, ag e 12+ yr (TwoFish-Partly - PURPLE TOP) Loulou Snyder APRN.[facility] Work Phone: [facility] Work Phone: 04-12-2021 influenza, injectabl e, quadrivalent, contains preservative Loulou Snyder APRN.[facility] Work Phone: [facility] 06-21-2016 influenza, injectabl e, quadrivalent, preservative free Loulou Snyder APRN.TELEPHONE ORDER DISPATCHER Work Phone: [facility] 06-21-2016 tetanus toxoid, redu judy diphtheria toxoid, and acellular pertussis vaccine, adsorbed Loulou Snyder APRN.TELEPHONE ORDER DISPATCHER Work Phone: [facility] 02-25-2013 influenza virus vaccine, unspecified formulation Loulou Snyder APRN.TELEPHONE ORDER DISPATCHER Work Phone: [facility] 02-21-2013 influenza virus vaccine, unspecified formulation Loulou Snyder APRN.TELEPHONE ORDER DISPATCHER Work Phone: [facility] 03-09-2010 influenza virus vaccine, unspecified formulation Loulou Snyder APRN.TELEPHONE ORDER DISPATCHER Work Phone: [facility] Work Phone: 07-22-2006 influenza virus vaccine, unspecified formulation Loulou Snyder APRN.TELEPHONE ORDER DISPATCHER Work Phone: [facility] Work Phone: 07-22-2006 yellow fever vaccine Loulou fournier APRN.TELEPHONE ORDER DISPATCHER Work Phone: [facility] Work Phone: 07-01-2006 hepatitis A vaccine, unspecified formulation Loulou Snyder APRN.TELEPHONE ORDER DISPATCHER Work Phone: [facility] Work Phone: 07-01-2006 hepatitis B vaccine, adult dosage Loulou Snyder APRN.TELEPHONE ORDER DISPATCHER Work Phone: [facility] Work Phone: 07-01-2006 tetanus toxoid, redu judy diphtheria toxoid, and acellular pertussis vaccine, adsorbed Loulou Snyder APRN.TELEPHONE ORDER DISPATCHER Work Phone: [facility] Work Phone: 07-01-2006 typhoid vaccine, unspecified formulation Loulou Snyder APRN.TELEPHONE ORDER DISPATCHER Work Phone: [facility] Work Phone: Payers Date Payer Category Payer Unknown [id number] 2007 Unknown [id number] 1960 Unknown [id number] 1960 Unknown [id number] 1960 Unknown [id number] Social History Date Type Detail Facility Start: 06-21-2016 End: 07-12-2022 Tobacco smoking status NHIS Never smoked tobacco [facility] Work Phone: Start: 06-21-2016 End: 07-12-2022 Tobacco use and exposure Smokeless tobacco non-user [facility] Work Phone: Start: 06-28-2021 End: 07-12-2022 Alcohol intake Current drinker of alcohol (finding) [facility] Start: 04-21-2020 End: 04-10-2021 History SDOH Alcohol Frequency 2 [facility] Start: 04-21-2020 End: 04-10-2021 History SDOH Alcohol Std Drinks 1 [facility] Start: 09-23-2018 History SDOH Alcohol Comment occasional [facility] Start: 03-30-2020 History SDOH Social Connections Phone 5 [facility] Start: 03-30-2020 History SDOH Social Connections Taoism 3 [facility] Start: 04-21-2020 History SDOH Financial 4 [facility] Start: 03-30-2020 Education 12 [facility] Start: 06-21-2016 End: 07-12-2022 Tobacco Comment second hand smoke exposure [facility] Start: 1960 Sex Assigned At Not on file [facility] Start: 03-30-2020 End: 04-24-2020 History of Social function [facility] Start: 03-30-2020 End: 04-24-2020 Social connection and isolation panel [facility] Active Member of [facility] bs or Organizations Not on file [facility] Are you now , , , , never or living with a partner? [facility] How often to you hav e a drink containing alcohol? Monthly or less [facility] How many standard dr inks containing alcohol do you have on a typical day? 1 or 2 [facility] How often do you hav e 6 or more drinks on 1 occasion? Never [facility] How hard is it for y ou to pay for the very basics like food, housing, medical care, and heating Not very hard [facility] Do you feel stress - tense, restless, nervous, or anxious, or unable to sleep at night because your mind is troubled all the time - these days [OSQ] Only a little [facility] (I/We) worried adan er (my/our) food would run out before (I/we) got money to buy more. Never true [facility] In the past 12 month s, was there a time when you were not able to pay the mortgage or rent on time? No [facility] Start: 1960 Sex Assigned At Female C [facility] Start: 04-29-2023 Gender identity Identifies as female gender (finding) [facility] Clinical Notes 01-08-2012 to 06-06-2023 Telephone Encounter - Laure Shultz RN - 04/29/2023 9:59 AM ESTTelephone Encounter - Stephany Velazquez RN - 04/29/2023 8:19 AM ESTTelephone Encounter - M Charles Rand RN - 07/18/2022 4:16 PM EST Note Date & Type Note Facility 06-06-2023 Note HNO ID: [id number] Author: EUSEBIA LUTZ MD Service: ? Author Type: Physician Type: Progress Notes Filed: 06/06/2023 13:21 Note Text: I have reviewed this patient's outside imaging from [facility] dated 05/29/2023. Recommendations on that exam were for RIGHT stereotactic biopsy of grouped calcifications in the upper outer breast and RIGHT six month follow up for a reported cyst at 4:00 5cmFN. The LEFT breast was recalled for an asymmetry in the lower breast on MLO view only. No sonographic correlate was seen and six month follow up was recommended. The patient saw Dr. Reynoso for surgical consultation who has referred the patient for bilateral ultrasound guided biopsies and a RIGHT stereotactic biopsy. FINDINGS: RIGHT: There are grouped calcifications in the upper outer quadrant. The asymmetry recalled from screening in the inner breast on CC view only is seen - I am not certain the sonographic finding at 4:00 5cmFN correlates with the mammographic finding - repeat ultrasound is recommended to determine if this correlates with the mammographic finding and if biopsy would be recommended. There is a possible asymmetry at a more posterior depth in the upper inner quadrant for which additional imaging is recommended. LEFT: There is an MLO-only asymmetry in the lower breast anterior depth. There was no sonographic correlate identified. RECOMMENDATIONS: RIGHT: - Repeat diagnostic mammogram with spot compression tomosynthesis views to evaluate another asymmetry at a far posterior depth in the upper inner breast and to evaluate the asymmetry recalled from screening. - Repeat diagnostic ultrasound to evaluate for sonographic correlates of any mammographic findings. Re-evaluate US finding at 4:00 5cmFN reported as a complicated cyst. LEFT: - Repeat diagnostic mammogram to evaluate the MLO-only one view possible asymmetry recalled from screening. Spot compression tomosynthesis view may be considered. Need for biopsy can be determined at the time of additional workup. The patient will be contacted by a breast imaging nurse navigator to schedule the recommended workup. [facility] 06-05-2023 Note HNO ID: [id number] Author: PAU REYNOSO MD Service: ? Author Type: Physician Type: Progress Notes Filed: 06/05/2023 09:34 Note Text: HISTORY AND PHYSICAL - BREAST COMPLAINT Carmenza Artis 1960 REFERRING PHYSICIAN: Cony Carballo MD CHIEF COMPLAINT: Mammographic microcalcification found on diagnostic imaging of breast (primary encounter diagnosis) Abnormal mammogram HPI: The patient is a 62 year old female with a complaint of an abnormal mammogram. The patient had a mammogram with ultrasound on 05/29/23 which demonstrated Mammographic microcalcification found on diagnostic imaging of breast (primary encounter diagnosis) Abnormal mammogram: The patient denies a history of breast masses. She does perform a self breast exam routinely. She notes no skin changes. She denies nipple discharge. She notes no axillary masses. She notes no family history of breast problems. She notes no significant breast trauma or breast difficulties in the past. The patient is being seen by me today at the request of Dr. Cony Carballo MD for my opinion and advice regarding Mammographic microcalcification found on diagnostic imaging of breast (primary encounter diagnosis) Abnormal mammogram. PAST MEDICAL HISTORY Diagnosis Date Arthritis Benign neoplasm of colon Delayed emergence from general anesthesia GERD (gastroesophageal reflux disease) Hemorrhoid History of uterine fibroid Hyperlipidemia Obesity Renal cyst Rheumatoid arthritis (HCC) PAST SURGICAL HISTORY Procedure Laterality Date COLONOSCOPY FLX DX W/COLLJ SPEC WHEN PFRMD 09/22/2010 Colonoscopy COLONOSCOPY FLX DX W/COLLJ SPEC WHEN PFRMD 10/07/2020 JOINT REPLACEMENT HX Right Partial right knee replaced LIG/TRNSXJ FLP TUBE ABDL/VAG APPR UNI/BI PAST SURGICAL HISTORY OF Right 06/2018 partial knee replacement TOTAL ABDOMINAL HYSTERECT W/WO RMVL TUBE OVARY 01/2012 and LSO For fibroid uterus VAGINAL HYSTERECTOMY Current Outpatient Medications Medication Sig Dispense Refill estradiol (ESTRACE) 0.01 % (0.1 mg/gram) vaginal cream Use 1 g vaginally two times a week. Use every night for 14 nights then twice a week 42.5 g 2 estradiol (ESTRACE) 0.01 % (0.1 mg/gram) vaginal cream Use 1 g vaginally two times a week. Use every night for 14 nights then twice a week 42.5 g 0 lansoprazole (PREVACID) 30 mg capsule Take by mouth. atorvastatin (LIPITOR) 40 mg tablet Take 1 tablet by mouth once daily. 90 tablet 2 Cholecalciferol, Vitamin D3, 50 mcg (2,000 unit) cap Take 1 capsule by mouth once daily. (Patient not taking: Reported on 07/12/2022) 90 capsule 2 No current facility-administered medications for this visit. ALLERGIES: Patient has no known allergies. PERSONAL HISTORY: Social History Tobacco Use Smoking status: Never Smokeless tobacco: Never Tobacco comments: second hand smoke exposure Vaping Use Vaping Use: Never used Substance Use Topics Alcohol use: Yes Comment: occasional Drug use: No FAMILY HISTORY: FAMILY HISTORY Problem Relation Age of Onset other (a fib) Mother other (a fib) Father Cancer Maternal Grandmother cervical Alzheimer's Disease Paternal Grandfather Thyroid Cancer Daughter Breast Cancer Maternal Aunt REVIEW OF SYMPTOMS: The review of systems data was entered by the nurse and reviewed by pr Nursing Notes: Precious Cullen RN 06/05/2023 8:24 AM Signed REVIEW OF SYSTEMS: General: The patient NOTES fatigue, denies weight loss, denies weight gain, denies feeling hot, and denies feelings of cold. Eyes: The patient denies glaucoma, denies eye injury/surgery, does not wear glasses or contacts. Ear/Nose/Throat: The patient denies allergies, denies hayfever, denies ear infections, and denies bloody noses. Cardiovascular: The patient denies chest pain, denies heart disease, denies high blood pressure,denies cardiac stent, denies prior heart attack, denies irregular heart beat, NOTES high cholesterol, denies poor circulation, denies heart failure, other cardiac issues, denies claudication, denies cold feet, denies peripheral arterial stent. Respiratory: The patient denies tuberculosis, denies pneumonia, denies frequent cough, denies pulmonary embolism, denies shortness of breath, and denies coughing up blood. Gastrointestinal: The patient denies difficulty swallowing, NOTES acid reflux, denies ulcers, denies vomiting, denies jaundice/hepatitis, denies gallbladder problems, denies black or tarry stools, denies hemorrhoids, denies bleeding from rectum, denies diverticulitis, denies constipation, denies diarrhea, denies loss of stool control, and denies hernias. Kidney/Bladder: The patient denies kidney stones, denies urine infections, and denies bloody urine. Skin: The patient denies a history of skin cancer, denies bleeding/changing moles, and NOTES a history of skin rash. Neurologic: The patient denies a history of epil (more content not included)... [facility] 05-29-2023 Note HNO ID: [id number] Author: CATHRNY GONZALEZ RDMS Service: ? Author Type: Switchboard Operator Helper Type: Progress Notes Filed: 05/29/2023 14:20 Note Text: Radiology Service Progress Note PATIENT NAME: Carmenza Artis DATE OF SERVICE: May 29, 2023 TIME: 2:20 PM PATIENT IDENTITY VERIFICATION COMPLETED USING TWO (2) IDENTIFIERS: Name and Date of confirmed by patient verbally. FALL SCREENING: Has the patient had 2 falls in the last year or 1 fall with injury or currently using an Ambulatory Assistive Device (Walker, Cane, Wheelchair, Crutches, etc.)? No PATIENT GENDER DATA: Female. status: : No status: NO. PATIENT RELEVANT IMPLANT DATA REVIEWED: Not Applicable RADIOLOGY DEPARTMENT: Ultrasound PERIPHERAL IV DATA: Not applicable SIGNED BY: Cathryn Gonzalez RDMS May 29, 2023 2:20 PM [facility] 05-09-2023 Note HNO ID: [id number] Author: Luz Lincoln Mammo Tech Service: ? Author Type: Switchboard Operator Helper Type: Progress Notes Filed: 05/09/2023 7:43 AM Note Text: Radiology Service Progress Note PATIENT NAME: Carmenza Artis DATE OF SERVICE: May 09, 2023 TIME: 7:26 AM PATIENT IDENTITY VERIFICATION COMPLETED USING TWO (2) IDENTIFIERS: Name and Date of confirmed by patient verbally. FALL SCREENING: Has the patient had 2 falls in the last year or 1 fall with injury or currently using an Ambulatory Assistive Device (Walker, Cane, Wheelchair, Crutches, etc.)? No PATIENT GENDER DATA: Female. status: : No status: NO. PATIENT RELEVANT IMPLANT DATA REVIEWED: Not Applicable RADIOLOGY DEPARTMENT: Mammography PERIPHERAL IV DATA: Not applicable SIGNED BY: Mario Rosales May 09, 2023 7:26 AM [facility] 04-29-2023 Miscellaneous Notes Order pended. AG patient last seen for annual on 06/28/21. documented in this encounter [facility] 04-29-2023 Miscellaneous Notes Last office visit with AG 06/28/21. [employer] message sent to schedule annual. Requested Prescriptions Pending Prescriptions Disp Refills estradiol (ESTRACE) 0.01 % (0.1 mg/gram) vaginal cream 42.5 g 2 Sig: Use 1 g vaginally two times a week. Use every night for 14 nights then twice a week STEPHANY VELAZQUEZ RN documented in this encounter [facility] 08-08-2022 Note Patient Outreach (IN [facility]) CARMENZA ARTIS ([id number]) 1960 F Date Time Provider Department 08/08/22 CONY CARBALLO During your visit today, we recorded the following information about you: Allergies As of Date: 08/08/2022 (No Known Allergies) Date Reviewed: 07/12/2022 Reviewed by: Opal Wadsworth LPN - Fully Assessed Visit Diagnosis:Encounter for screening mammogram for breast cancer [Z12.31] Order(s):[facility] SCREENING [[id number]] Order #: [id number] FUTURE Prescriptions as of 08/13/2022 - estradiol (ESTRACE) 0.01 % (0.1 mg/gram) vaginal cream Use 1 g vaginally two times a week. Use every night for 14 nights then twice a week - lansoprazole (PREVACID) 30 mg capsule Take by mouth. - Cholecalciferol, Vitamin D3, 50 mcg (2,000 unit) cap Take 1 capsule by mouth once daily. - atorvastatin (LIPITOR) 40 mg tablet Take 1 tablet by mouth once daily. Problem List As Of Date 08/08/2022 Noted Resolved Other and unspecified hyperlipidemia [E78.5] 05/05/2007 06/05/2018 OVERWEIGHT [E66.9] 05/05/2007 02/25/2013 Internal hemorrhoids without mention of complic*09/22/2010 Special screening for malignant neoplasms, colo*09/22/2010 Benign neoplasm of colon [D12.6] 09/22/2010 Premenopausal menorrhagia [N92.4] 11/14/2011 02/25/2013 Fibroids [D21.9] 12/11/2011 02/25/2013 Pelvic pressure in female [R10.2] 01/08/2012 02/25/2013 Rheumatoid arthritis (HCC) [M06.9] 02/25/2013 GERD (gastroesophageal reflux disease) [K21.9] Hyperlipidemia [E78.5] Genitourinary syndrome of menopause [N95.8] 07/08/2020 Fatty liver [K76.0] 03/30/2021 Renal cyst [N28.1] 03/30/2021 Encounter Status:Closed by [employer], PRODUSER on 08/13/22 [facility] 07-18-2022 Miscellaneous Notes Mild pain near right eye and above it. For 2 days has been seeing floaters and mild blurred vision. Patient tried to call [facility] eye doctor but they are not in today. Scheduled same day appt with Consulting Senior Practice Director. Reason for Disposition [1] Mild eye pain AND [2] present < 24 hours Answer Assessment - Initial Assessment Questions 1. ONSET: Right eye mild pain beside and above eye started today as CORONADO near that eye, 2 days ago started having-vision problem-a little blurry, floaters- looks like a cloudy hair, sometimes there's an actual lower [place]. No eye injury. Eye is not bloodshot. Wears readers only. 2. TIMING: Noticed the pain just today- slight CORONADO right side and above right eye. Noticed the floaters yesterday. Floaters get worse with activity. 3. SEVERITY: Mild 4. LOCATION: CORONADO beside and above right eye 5. CAUSE: No idea. Has been coughing a lot for about a week. Just got off AB for pneumonia. 6. VISION: Yes has mild blurred vision in right eye 7. EYE DISCHARGE: No 8. FEVER: No 9. OTHER SYMPTOMS: A little stuffy. 10. No. Protocols used: Eye Pain and Other Aogwbuoh-FLVCU-QD documented in this encounter [facility] 07-13-2022 Miscellaneous Notes Patient notified of results, verbalized understanding. Randa Henley MA Negative for covid please notify thank you documented in this encounter [facility] 07-12-2022 Note HNO ID: [id number] Author: Wally Wallace MD Service: ? Author Type: Physician Type: Progress Notes Filed: 07/12/2022 8:16 AM Note Text: Patient presents with: Cough: Cough, chest congestion and sinus x 1 week HPI: Feeling sick for 8 days. She seemed to be getting better, but now her sinus pressure and cough are worsening. Home COVID test negative yesterday. Her grandchildren may have been sick. Positive symptoms: Cough, Chest tightness, Sinus pressure, Nasal Congestion, Rhinorrhea, improved Sore throat/Earache, Negative symptoms: Fever, Chills, Nausea, Vomiting, Diarrhea, OTC: Mucinex, tessalon, left over amoxicillin No PMHx of asthma, pneumonia, or smoking. smokes. PAST MEDICAL HISTORY Diagnosis Date Arthritis Delayed emergence from general anesthesia GERD (gastroesophageal reflux disease) History of uterine fibroid Hyperlipidemia Obesity Rheumatoid arthritis (HCC) MEDICATIONS: Current Outpatient Medications Medication Sig estradiol (ESTRACE) 0.01 % (0.1 mg/gram) vaginal cream Use 1 g vaginally two times a week. Use every night for 14 nights then twice a week lansoprazole (PREVACID) 30 mg capsule Take by mouth. atorvastatin (LIPITOR) 40 mg tablet Take 1 tablet by mouth once daily. Cholecalciferol, Vitamin D3, 50 mcg (2,000 unit) cap Take 1 capsule by mouth once daily. (Patient not taking: Reported on 07/12/2022) L. acidophilus-L. rhamnosus 15 billion cell cap Take 1 capsule by mouth once daily. FLOR[employer] WOMEN. If on antibiotic, take at least 1-2 hours before or after antibiotic. KEEP REFRIGERATED No current facility-administered medications for this visit. ALLERGIES: ALLERGIES No Known Allergies VITALS: BP 118/80 Pulse 64 Temp 36.5 ?C (97.7 ?F) (Tympanic) Resp 18 Wt 92.1 kg (203 lb) LMP 01/14/2012 SpO2 97% BMI 37.13 kg/m? PHYSICAL EXAM: GEN: mildly ill appearing HEENT: PERRL, EOMI, conjunctiva clear Ears: canals clear. TMs without erythema, bulge, or effusion Sinuses: non-tender frontal sinus, non-tender maxillary sinuses Throat: moist mucous membranes, no erythema, no exudate Neck: supple, no thyromegaly, no lymphadenopathy HEART: regular rate and rhythm, no murmurs LUNGS: bilateral basilar wheezes, no increased WOB; raspy cough ASSESSMENT/PLAN: 1. Acute non-recurrent sinusitis, unspecified location - ICD9: 461.9, ICD10: J01.90 (primary diagnosis) 2. Acute cough - ICD9: 786.2, ICD10: R05.1 - suspect secondary bacteria sinusitis. Differential includes new viral URI and COVID-19. - Discussed supportive care treatment with cough and cold medicine and analgesia. - Red flags to seek further treatment include chest pain, shortness of breath, and lethargy; in the ER if severe. - 2019 CORONAVIRUS - DOXYCYCLINE MONOHYDRATE 100 MG CAPSULE - BENZONATATE 100 MG CAPSULE Wally Wallace MD [facility] 07-12-2022 History of Present illness Narrative Patient presents with: Cough: Cough, chest congestion and sinus x 1 week HPI: Feeling sick for 8 days. She seemed to be getting better, but now her sinus pressure and cough are worsening. Home COVID test negative yesterday. Her grandchildren may have been sick. Positive symptoms: Cough, Chest tightness, Sinus pressure, Nasal Congestion, Rhinorrhea, improved Sore throat/Earache, Negative symptoms: Fever, Chills, Nausea, Vomiting, Diarrhea, OTC: Mucinex, tessalon, left over amoxicillin No PMHx of asthma, pneumonia, or smoking. smokes. PAST MEDICAL HISTORY Diagnosis Date Arthritis Delayed emergence from general anesthesia GERD (gastroesophageal reflux disease) History of uterine fibroid Hyperlipidemia Obesity Rheumatoid arthritis (HCC) MEDICATIONS: Current Outpatient Medications Medication Sig estradiol (ESTRACE) 0.01 % (0.1 mg/gram) vaginal cream Use 1 g vaginally two times a week. Use every night for 14 nights then twice a week lansoprazole (PREVACID) 30 mg capsule Take by mouth. atorvastatin (LIPITOR) 40 mg tablet Take 1 tablet by mouth once daily. Cholecalciferol, Vitamin D3, 50 mcg (2,000 unit) cap Take 1 capsule by mouth once daily. (Patient not taking: Reported on 07/12/2022) L. acidophilus-L. rhamnosus 15 billion cell cap Take 1 capsule by mouth once daily. [employer]ORAJ[employer] WOMEN. If on antibiotic, take at least 1-2 hours before or after antibiotic. KEEP REFRIGERATED No current facility-administered medications for this visit. ALLERGIES: ALLERGIES No Known Allergies VITALS: BP 118/80 Pulse 64 Temp 36.5 C (97.7 F) (Tympanic) Resp 18 Wt 92.1 kg (203 lb) LMP 01/14/2012 SpO2 97% BMI 37.13 kg/m PHYSICAL EXAM: GEN: mildly ill appearing HEENT: PERRL, EOMI, conjunctiva clear Ears: canals clear. TMs without erythema, bulge, or effusion Sinuses: non-tender frontal sinus, non-tender maxillary sinuses Throat: moist mucous membranes, no erythema, no exudate Neck: supple, no thyromegaly, no lymphadenopathy HEART: regular rate and rhythm, no murmurs LUNGS: bilateral basilar wheezes, no increased WOB; raspy cough ASSESSMENT/PLAN: 1. Acute non-recurrent sinusitis, unspecified location - ICD9: 461.9, ICD10: J01.90 (primary diagnosis) 2. Acute cough - ICD9: 786.2, ICD10: R05.1 - suspect secondary bacteria sinusitis. Differential includes new viral URI and COVID-19. - Discussed supportive care treatment with cough and cold medicine and analgesia. - Red flags to seek further treatment include chest pain, shortness of breath, and lethargy; in the ER if severe. - 2019 CORONAVIRUS - DOXYCYCLINE MONOHYDRATE 100 MG CAPSULE - BENZONATATE 100 MG CAPSULE Wally Wallace MD documented in this encounter [facility] 12-28-2021 Miscellaneous Notes Last annual 06/28/2021 with [facility]. Needs mail order pharmacy. Requested Prescriptions Pending Prescriptions Disp Refills estradiol (ESTRACE) 0.01 % (0.1 mg/gram) vaginal cream 42.5 g 2 Sig: Use 1 g vaginally two times a week. Use every night for 14 nights then twice a week RX INSTRUCTIONS: Patient aware RX will be sent to pharmacy. No need to notify patient. Anne-Marie Camejo RN documented in this encounter [facility] documented as of this encounter (statuses as of 12/28/2021) [facility] History of Past illness Narrative* Problem Noted Date Resolved Date Pelvic pressure in female 01/08/20122012 Fibroids 12/11/2011 02/25/2013 Premenopausal menorrhagia 11/14/20112012 Other and unspecified hyperlipidemia 05/05/2007 06/05/2018 OVERWEIGHT 05/05/2007 02/25/2013 documented as of this encounter (statuses as of 07/12/2022) [facility] History of Past illness Narrative* Problem Noted Date Resolved Date Pelvic pressure in female 01/08/20122012 Fibroids 12/11/2011 02/25/2013 Premenopausal menorrhagia 11/14/20112012 Other and unspecified hyperlipidemia 05/05/2007 06/05/2018 OVERWEIGHT 05/05/2007 02/25/2013 documented as of this encounter (statuses as of 07/13/2022) [facility] History of Past illness Narrative* Problem Noted Date Resolved Date Pelvic pressure in female 01/08/20122012 Fibroids 12/11/2011 02/25/2013 Premenopausal menorrhagia 11/14/20112012 Other and unspecified hyperlipidemia 05/05/2007 06/05/2018 OVERWEIGHT 05/05/2007 02/25/2013 documented as of this encounter (statuses as of 09/13/2022) [facility] History of Past illness Narrative* Problem Noted Date Diagnosed Date Resolved Date Pelvic pressure in female 01/08/2012 Fibroids 12/11/2011 02/25/2013 Premenopausal menorrhagia 11/14/2011 Other and unspecified hyperlipidemia 05/05/2007 06/05/2018 OVERWEIGHT 05/05/2007 02/25/2013 documented as of this encounter (statuses as of 04/29/2023) [facility] History of Past illness Narrative* Problem Noted Date Diagnosed Date Resolved Date Pelvic pressure in female 01/08/2012 Fibroids 12/11/2011 02/25/2013 Premenopausal menorrhagia 11/14/2011 Other and unspecified hyperlipidemia 05/05/2007 06/05/2018 OVERWEIGHT 05/05/2007 02/25/2013 documented as of this encounter (statuses as of 04/30/2023) [facility] note* Diagnosis Genitourinary syndrome of menopause documented in this encounter [facility] note* Diagnosis Acute non-recurrent sinusitis, unspecified location- Primary Acute cough documented in this encounter [facility] note* Diagnosis Genitourinary syndrome of menopause documented in this encounter [facility] note* Diagnosis Genitourinary syndrome of menopause documented in this encounter [facility] Summary Purpose Family History No Family History Records FoundNo Family History Records FoundNo Family History Records FoundNo Family History Records Found Advance Directives No Advanced Directives Records FoundNo Advanced Directives Records FoundNo Advanced Directives Records FoundNo Advanced Directives Records Found Additional Source Comments INFORMATION SOURCE (unrecogn ized section and content) DATE CREATED AUTHOR AUTHOR'S ORGANIZ ATION 03/26/2021 [facility] DATE CREATED AUTHOR AUTHOR'S ORGANIZ ATION 04/08/2021 [facility] DATE CREATED AUTHOR AUTHOR'S ORGANIZ ATION 06/09/2023 [facility] Source Comments (unrecognize d section and content) In the event this informatio n is protected by the Federal Confidentiality of Alcohol and Drug Abuse Patient Records regulations: The Federal rules restrict any use of the information to criminally investigate or prosecute any alcohol or drug abuse patient.[facility] the event this information is protected by the Federal Confidentiality of Alcohol and Drug Abuse Patient Records regulations: The Federal rules restrict any use of the information to criminally investigate or prosecute any alcohol or drug abuse patient.[facility] the event this information is protected by the Federal Confidentiality of Alcohol and Drug Abuse Patient Records regulations: The Federal rules restrict any use of the information to criminally investigate or prosecute any alcohol or drug abuse patient.[facility] the event this information is protected by the Federal Confidentiality of Alcohol and Drug Abuse Patient Records regulations: The Federal rules restrict any use of the information to criminally investigate or prosecute any alcohol or drug abuse patient.[facility] the event this information is protected by the Federal Confidentiality of Alcohol and Drug Abuse Patient Records regulations: The Federal rules restrict any use of the information to criminally investigate or prosecute any alcohol or drug abuse patient.[facility] the event this information is protected by the Federal Confidentiality of Alcohol and Drug Abuse Patient Records regulations: The Federal rules restrict any use of the information to criminally investigate or prosecute any alcohol or drug abuse patient.[facility] Reason for Visit (unrecogniz ed section and content) Reason Comments Cough Cough, chest congest ion and sinus x 1 week Reason Comments Results Reason Comments Eye Pain Reason Onset Date Comments Refill Request 04/29/2023 Care Teams (unrecognized sec tion and content) 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 Specialty Start Date End Date Cony Carballo MD [address], [place] [phone] PCP - General Family Medicine 06/21/16 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 Specialty Start Date End Date Cony Carballo MD [address] [place], [place] [phone] PCP - General Family Medicine 06/21/16 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 This clinical summary was aggregated from multiple sources. Caution should be exercised in using it in the provision of clinical care. This summary normalizes information from multiple sources, and as a consequence, information in this document may materially change the coding, format and clinical context of patient data. In addition, data may be omitted in some cases. CLINICAL DECISIONS SHOULD BE BASED ON THE PRIMARY CLINICAL RECORDS. [facility]. provides no warranty or guarantee of the accuracy or completeness of information in this document.
--- NOTE | 2023-06-17 09:09 | EX.ED.DYSGE1 ---
HPI History of Present Illness Chief Complaint: Shortness of Breath Informant: patient Narrative Narrative: Intermittent cough for 3 weeks nonproductive. Seen in urgent care 2 weeks ago reported placed on Tessalon Perles and antibiotics with no relief. Over 3 days increasing chest heaviness. Continued cough. No fevers or myalgias. Home COVID test this morning negative. No cardiac history. Hyperlipidemia and GERD history. Prior similar symptoms: No PFSH PFSH Medical History Abnormal EKG Arthritis of right knee GERD (gastroesophageal reflux disease) Hyperlipidemia Obesity Home Medications ibuprofen 200 mg tablet (Advil) 200 mg PO TID-QID PRN 01/23/18 [History Last Taken Unknown] cholecalciferol (vitamin D3) 50 mcg (2,000 unit) capsule 50 mcg PO DAILY #90 caps 02/16/21 [Rx Last Taken Unknown] lansoprazole 30 mg capsule,delayed release See Rx Instructions .Route .COMPLEX #180 caps 07/26/22 [Rx Last Taken Unknown] atorvastatin 40 mg tablet 40 mg PO QHS #90 tabs 02/05/23 [Rx Last Taken Unknown] Allergy/AdvReac Type Severity Reaction Status Date / Time No Known Allergies Allergy Verified 06/17/23 07:48 Family History Mother Atrial fibrillation Father , age 78 Atrial fibrillation CVA (cerebral vascular accident) Surgical History Status post right partial knee replacement (06/2018) Social History Smoking Status: Never smoker ROS ROS ED Constitutional Constitutional ED: Denies chills, fever(s) or sweats Eyes Eyes: Denies change in vision ENT ENT ED: Denies dysphagia or sore throat Cardiovascular Cardiovascular: Reports chest pain; Denies leg edema, palpitations or racing heartbeat Respiratory/Chest Respiratory/Chest: Reports cough; Denies dyspnea or dyspnea on exertion Gastrointestinal Gastrointestinal: Denies abdominal pain, diarrhea, nausea or vomiting Genitourinary Genitourinary ED: Denies dysuria, hematuria or urinary frequency Musculoskeletal Musculoskeletal: Denies back pain, extremity pain or neck pain Integumentary Denies rash or wounds Neurologic Neurologic: Denies headache(s), paresthesias or weakness EXAM Physical Exam Const Vital Signs: 06/17/23 07:46 06/17/23 08:06 06/17/23 08:26 Temperature 97.9 F Temperature Source Temporal Pulse Rate 80 Respiratory Rate 16 Respiratory Effort Short of Breath Respiratory Depth Normal Respiratory Pattern Normal Normal Blood Pressure 157/78 H Blood Pressure Mean 104 Pulse Ox Oxygen Delivery Method Room Air 06/17/23 08:33 Temperature Temperature Source Pulse Rate Respiratory Rate Respiratory Effort Respiratory Depth Respiratory Pattern Blood Pressure Blood Pressure Mean Pulse Ox 97 Oxygen Delivery Method Room Air Positive well nourished and well developed General Appearance ED: well developed and NAD HEENT Reports moist mucous membranes normocephalic and atraumatic Eyes PERRL, EOMs intact bilaterally and conjunctivae normal General Eye ED: Yes normal appearance of both eyes Neck no lymphadenopathy and supple General: Negative for tenderness Chest Wall Chest: Negative for tenderness Resp normal respiratory effort and normal air movement Effort and Inspection: symmetric chest movement; Negative for respiratory distress Cardio regular rate, regular rhythm and no murmurs Peripheral Pulses: pulses 2+ throughout GI normal to inspection, nondistended, normoactive bowel sounds and non-tender Palpation: Negative for guarding or rebound tenderness present Back/Spine no CVA tenderness and no thoracic nor lumbar tenderness Extremity normal to inspection General Extremety ED: Negative for edema or tenderness General Extremity: Negative for edema Neuro oriented x3 and no sensory deficits noted Sensorium / Orientation: awake and alert Skin no rashes or lesions noted and no wounds MDM MDM MDM Narrative Medical decision making narrative: Interventions / MDM: Differential diagnosis: Viral syndrome, atypical chest pain Diagnosis considered but do not suspect: ACS however EKG no ischemic findings cardiac enzymes negative. Pneumonia however x-ray negative. My EKG interpretation: Sinus rate of 80, no ST or T wave changes. Imaging independently reviewed and interpreted by myself: Two-view chest x-ray: No acute process. External documents reviewed: N/A Test considered but not ordered:N/A ED course: Patient heaviness for 3 days persistent cough for 3 weeks. No fevers. Slight wheeze on exam not hypoxic. Cardiac workup initiated. EKG with no acute findings. Two-view chest x-ray ordered. Aerosol ordered due to the wheezing. 0940: Cardiac workup negative. Troponin x 1 negative with 3 days persistent symptoms negative cardiac enzyme less likely cardiac in nature. Chest x-ray negative. Nasal swab negative for COVID and influenza however RSV was positive. Discussed with patient viral cause of her symptoms over 3 weeks. She has bronchospasms. Wheezing improved with aerosol treatments. Discussed adjunct therapies with vapor rubs and humidifier. MDI inhaler with spacer dispensed with patient to use as needed. Discussed symptomatic treatment and outpatient follow with her PCP. All questions were answered. Re-evaluation: stable Disposition discussed with patient/family/significant other: Patient Case discussed with consulting clinician: N/A This note was generated with [employer] dictation software. It may contain incorrect words, spelling, and punctuation that were not noted in checking the note before signing. Lab Data Attestation: I reviewed the patient's lab results. Labs: Laboratory Results - last 24 hr 06/17/23 08:05 WBC 8.7 RBC 5.11 Hgb 15.5 H Hct 45.8 MCV 89.6 MCH 30.3 MCHC 33.8 RDW Std Deviation 41.2 RDW Coeff of Daryl 12.5 Plt Count 170 MPV 11.6 Immature Gran % (Auto) 0.300 Neut % (Auto) 77.9 H Lymph % (Auto) 9.5 L Robertson % (Auto) 8.2 Eos % (Auto) 3.3 Baso % (Auto) 0.8 Absolute Neuts (auto) 6.8 Absolute Lymphs (auto) 0.82 L Nucleated RBC % 0 Sodium 139 Potassium 3.9 Chloride 110 H Carbon Dioxide 25.0 Anion Gap 4 L BUN 13 Creatinine 0.93 Estim Creat Clear Calc 64.71 Est GFR (MDRD) Af Amer 78 Est GFR (MDRD) Non-Af 64 BUN/Creatinine Ratio 13.9 Glucose 101 Calcium 9.4 Troponin I High Sens 6 Radiography Diagnostic Testing: Clinical Impression(s) from Imaging Studies Chest X-Ray 06/17/23 08:35 IMPRESSION: No acute abnormality seen. Electronically Signed: Stewart Abdul MD at 8:59 EST , Discharge Plan Triage Chief Complaint: Shortness of Breath ED Provider: Deric Hickey Dx/Rx/DC Orders Clinical Impression: RSV bronchitis, Chest pain Instructions: RSV (Respiratory Syncytial Virus), ED Chest Pain, Noncardiac Prescriptions: No Action ibuprofen [Advil] 200 mg tablet 200 mg PO TID-QID PRN cholecalciferol (vitamin D3) 50 mcg (2,000 unit) capsule 50 mcg PO DAILY Qty: 90 4RF lansoprazole 30 mg capsule,delayed release(DR/EC) See Rx Instructions .ROUTE .COMPLEX Qty: 180 3RF Dose Instruction: TAKE 1 CAPSULE TWICE DAILY FOR DISCONTINUED OMEPRAZOLEAND GIVE THIS INSTEAD Rx Instructions: TAKE 1 CAPSULE TWICE DAILY FOR DISCONTINUED OMEPRAZOLEAND GIVE THIS INSTEAD atorvastatin 40 mg tablet 40 mg PO QHS Qty: 90 3RF Primary Care Provider: Jame Carballo Referrals: Jame Carballo MD [Primary Care Provider] - 5-7 Days Activity Restrictions/Additional Instructions: Cardiac workup negative. Chest x-ray negative. COVID and influenza negative. Positive for RSV. Use inhaler as dispensed with you 1 to 2 puffs every 4 hours as needed for wheezing. Use humidifier and vapor rubs at home. Follow-up with your doctor. Disposition Disposition: Home, Self Care
[2023-06-17 10:00] VITALS: BP 132/78; PULSE 72; RESP 20; TEMP 36.4; O2SAT 95
[2023-06-17] MEDS: Albuterol Sulfate 8 gm Inhaler (60 puffs) 2 PUFF INHALATION (10:15)
== END 2023-06-17 10:16 | disposition home or self-care (01) ==
PROVIDERS: Emergency Provider Emergency Medicine; PCP Family Medicine; Visit Provider Emergency Medicine
DX: R07.9 Chest pain, unspecified (principal); J20.5 Acute bronchitis due to respiratory syncytial virus; E78.5 Hyperlipidemia, unspecified; K21.9 Gastro-esophageal reflux disease without esophagitis
CPT/HCPCS: 71046; 80048; 84484; 85025; 87631; 93005; 94640; 99284; A4216